=== PATIENT | male | born 1955 | race Caucasian/White ===

== ENCOUNTER 2019-07-28 13:59 | Emergency (ER) | payer BC, SELFPAY ==
[2019-07-28 14:04] VITALS: BP 142/84; PULSE 97; RESP 16; TEMP 36.7; O2SAT 97
--- NOTE | 2019-07-28 14:06 | ED.GENADUL_ITS ---
Discharge Plan Disposition Patient Disposition: HOME Condition: Stable Discharge Details Chief Complaint: Nk/Back Pain Clinical Impression: Sciatica, Groin strain Primary Care Provider: None,None ED Provider: Jes Brambila Home Meds and New Rx's Prescriptions: New methocarbamol 500 mg tablet 500 mg PO Q6H PRN (Reason: muscle spasm) Qty: 14 RF: 0 prednisone 20 mg tablet See Rx Instructions .ROUTE .COMPLEX Qty: 12 RF: 0 Continued meloxicam 15 mg Tablet 15 mg PO PRNRF: 0 Discharge Instructions Instructions: Sciatica (ED) Additional Instructions: Drink plenty of fluids and get plenty of rest. Continue to take meloxicam as needed and directed. Take the muscle relaxer m ethocarbamol as needed and directed for pain. Take the steroids until finished. Follow-up with physical therapy as directed. You will receive a call from care management regarding a follow-up appointment with your primary care doctor. Return to the emergency department if you develop any worsening or new concerning symptoms. Stand Alone Forms: Physical Therapy Referral Discharge Data Discharge Date/Time-TO BE ENTERED AT DEPARTURE: 07/28/19 15:04 Discharge Physician: Jes Brambila Medical Decision Making 64yo M presents with right lower back, buttock and right thigh pain for the past 5 months after a slip without direct injury or fall to the ground. No fever, urinary or cauda equina symptoms. He appears in no acute distress and nontoxic. He has tenderness to palpation right lumbar paraspinal region, right buttock, right lateral hip. No evidence of rash or trauma. Neurovascular intact. No focal deficits. Differential diagnosis includes sciatica, muscle strain, groin strain, tight IT band, disc herniation. Does not appear consistent with cauda equina syndrome. Will give a dose of IM Toradol, p.o. Valium and p.o. prednisone. Do not see indication for imaging as there is no report of recent direct blunt injury. Patient given referral for physical therapy. He is advised on importance of rest, ice, heat, NSAIDs. We will send home with prednisone and methocarbamol. Advised to follow up with the primary care doctor for re-evaluation. He was placed on care management list to arrange for follow-up appointment with a primary care doctor. Usual and customary return precautions given prior to discharge. Medical Records Medical records reviewed: Yes I reviewed the patient's medical records. HPI General Mode of arrival: ambulatory . Date/Time Provider Initiated Documentation: 07/28/19 14:01 . Limitations to Documentation: no limitations . Information obtained by: patient . HPI Narrative: Patient is a 64-year-old male who presents with 5 months of right-sided lower back, buttock and right thigh pain. Patient states he was walking a few months ago when he slipped and his right leg extended outward. Patient states he did not fall directly on his buttock or leg. He states he feels that his right groin becomes painful at times with overuse and when he bends or extends or externally rotates his leg. He denies any fever, abdominal pain, urinary symptoms, bowel or bladder incontinence, leg weakness or numbness, saddle anesthesia. He has been taking meloxicam which he takes for his knee without relief. He states his last dose of meloxicam was 7am this morning. He has not seen his primary care doctor for this. Related Data Home Medications Medication Instructions Recorded Confirmed meloxicam 15 mg PO PRN 07/28/19 methocarbamol 500 mg PO Q6H PRN #14 tab 07/28/19 prednisone See Rx Instructions .ROUTE 07/28/19 .COMPLEX #12 tab Previous Rx's Medication Instructions Recorded methocarbamol 500 mg PO Q6H PRN #14 tab 07/28/19 prednisone See Rx Instructions .ROUTE 07/28/19 .COMPLEX #12 tab Allergies Allergy/AdvReac Type Severity Reaction Status Date / Time No Known Allergies Allergy Unverified 07/28/19 14:09 Review of Systems All systems reviewed & are unremarkable except as noted in HPI and below Constitutional Constitutional: Reports as per HPI, Denies chills and Denies fever(s) Eyes Eyes: Denies blurry vision ENT Ears, Nose, Mouth, and Throat: Denies dizziness, Denies sore throat and Denies throat swelling Cardiovascular Cardiovascular: Denies chest pain and Denies dyspnea Respiratory Respiratory: Denies cough and Denies dyspnea Gastrointestinal Gastrointestinal: Denies abdominal pain, Denies diarrhea and Denies vomiting Genitourinary Genitourinary: Denies hematuria and Denies dysuria Musculoskeletal Musculoskeletal: Reports back pain and Denies numbness Integumentary/Breasts Skin/Breast: Denies lesions and Denies rash Neurologic Neurologic: Denies dizziness, Denies localized weakness and Denies numbness Allergic/Immunologic Allergic/Immunologic: Denies throat swelling [facility] Medical History (Updated 07/28/19 @ 14:45 by Jes Brambila DO) No significant past medical history (Acute) Surgical History (Updated 07/28/19 @ 14:45 by Jes Brambila DO) History of left knee surgery (Acute) Social History (Updated 07/28/19 @ 14:46 by Jes Brambila DO) Smoking/Tobacco Use Status: Current-Occasional Tobacco Type: cigarettes Alcohol Intake: current Alcohol Intake frequency: a few times a week Alcohol type: wine Substance use type: does not use Exam Const General: cooperative, healthy appearing and no acute distress HENMT Head: normal to inspection Face and sinus: normal facial exam Eyes General: appearance normal, both eyes and all related structures EOM: EOM intact bilaterally Neck Neck: normal visual inspection and No submandibular swelling Lymphatic: no lymphadenopathy noted Chest Chest: normal inspection of the chest and no tenderness Resp Effort & Inspection: normal respiratory effort and able to speak in complete sentences Auscultation: clear to auscultation bilaterally Cardio Rate: regular rate Rhythm: regular rhythm GI Inspection: normal to inspection Palpation: soft, not firm, not rigid and nontender Auscultation: normal bowel sounds Male General Exam: Yes normal external exam Penis: normal penis Scrotum: scrotum normal Testes: normal Back/Spine/Pelvis Thoracic/Lumbar Spine: thoracic and lumbar spine normal to inspection and paraspinal tenderness (R lumbar paraspinal ) Pelvis: no pain with anterior-posterior compression, no buttock ecchymosis, buttock tenderness on the right and no buttock swelling Sacrum: no ecchymosis, no erythema, no swelling and no tenderness Skin General skin exam: no rashes or lesions noted Neuro General: patient alert, patient awake and patient oriented x3 Cognition: normal cognition Speech: speech normal Motor: muscle tone normal throughout and strength 5/5 throughout Sensory Exam: no sensory deficits noted DTR's: Rt Patellar: 1+, Lt Patellar: 1+, Rt Ankle: 1+ and Lt Ankle: 1+ Plantar Reflexes: Equivocal: bilateral (negative babinski b/l ) Extrem General: normal to inspection, full ROM, capillary refill normal, no calf tenderness bilaterally and no edema Right lower extremity: foot Details: vascular exam Details: dorsalis pedis pulse present and posterior tibial pulse present Left lower extremity: foot Details: vascular exam Details: dorsalis pedis pulse present and posterior tibial pulse present Psych Appearance: grossly normal Mental Status: mental status grossly normal Speech and Movement: speech and movement normal Affect: normal affect
[2019-07-28] MEDS: predniSONE 20 MG TAB 60 MG PO (14:48)
[2019-07-28] MEDS: diazePAM 5 MG TAB PO (14:48)
[2019-07-28] MEDS: Ketorolac 60 MG/2 ML VIAL IM (14:49)
--- NOTE | 2019-07-30 12:57 | PDOC.ERCMPRO ---
- If Service Date Differs Date of service: 07/30/19 Time of Service: 12:57 Care Management Progress Note At ED provider's request, CM coordinates referral to Roxanne Cerrato MD, of [facility] ([facility]) to assist patient in establishing care with PCP.
== END 2019-07-28 15:04 | disposition home or self-care (01) ==
LOC: ER 15:05
PROVIDERS: Emergency Provider Physician Assistant
DX: M54.41 Lumbago with sciatica, right side (principal); S76.211A Strain of adductor muscle, fascia and tendon of right thigh, initial encounter; W18.49XA Other slipping, tripping and stumbling without falling, initial encounter
CPT/HCPCS: 96372; 99284; J1885; J7512

== ENCOUNTER 2019-08-18 15:46 | Outpatient (CLI) | payer BC, SELFPAY ==
--- NOTE | 2019-08-18 11:00 | DI.RAD_ITS ---
EXAM: XR HIP RT COMPLETE AP PELVIS INDICATION: R hip pain. COMPARISON: No exams were available for comparison TECHNIQUE: 2D digital imaging was performed. FINDINGS: There is mild bilateral hip joint space narrowing. There is moderate bilateral spurring from the ac etabula. There is mild spurring at the margin of the femoral heads. The findings are slightly worse on the right. The SI joints are unremarkable where visualized. IMPRESSION: Ewen-nc-setouczm degenerative changes of both hips, right greater than left. DATA REPOSITORY: RADIATION DOSE DELIVERED:
== END 2019-08-18 16:06 ==
PROVIDERS: Visit Provider Physician Assistant
DX: M25.551 Pain in right hip (principal); M16.0 Bilateral primary osteoarthritis of hip
CPT/HCPCS: 73502

== ENCOUNTER 2019-08-23 08:51 | Day surgery (SDC) | payer BC, SELFPAY ==
[2019-08-23 09:05] VITALS: BP 151/87; PULSE 88; RESP 16; TEMP 36.7; O2SAT 98
[2019-08-23] MEDS: methylPREDNISolone ACETATE 80 MG/ML VIAL (10:57)
--- NOTE | 2019-08-23 10:58 | DI.RAD_ITS ---
EXAM: XR HIP RT IN OR CLINICAL HISTORY: DJD RIGHT HIP TECHNIQUE: 2D and realtime digital imaging was performed. CONTRAST MATERIAL: Refer to procedure report. COMPARISON: No exams were available for comparison FINDINGS: Fluoroscopy was provided for Dr. Gamez during the performance of a right hip joint injection. Kirstin herrera refer to the procedure report for complete details. Fluoro time: 2.2 seconds IMPRESSION: RADIATION DOSE DELIVERED:
--- NOTE | 2019-08-23 11:02 | PDOC.DSDIS_ITS ---
Discharge Plan Disposition Patient Disposition: HOME Condition: Good Discharge Details Reason For Visit: C ARM GUIDED INJECTION R HIP Attending Provider: Junior Gamez Primary Care Provider: None,None Home Meds and New Rx's Prescriptions: New naproxen 500 mg tablet 500 mg PO BID Qty: 60 RF: 3 Continued ibuprofen 200 mg Tablet 400 mg PO Q6H PRNRF: 0 Discontinued meloxicam 15 mg Tablet 15 mg PO PRNRF: 0 Discharge Instructions Additional Instructions: Limit walking for next 2 days. On Fri, increase activities as tolerated. Stop meloxicam. Take naproxen instead at breakfast and supper. Follow up with in one month. Referrals: Junior Gamez MD [ [facility] STAFF PHYSICIAN] - (f/u in one month) Activity:: Activity as Tolerated Diet:: As Tolerated Discharge Orders Discharge Orders: Discharge Order (Routine); Ordered 08/23/19 Ordered By: Junior Gamez
--- NOTE | 2019-08-23 15:25 | ROE_ITS ---
Date of service: 08/23/19 Time of Service: 10:25 Operative Note Operative Note DATE OF PROCEDURE: 08/23/19 PRE-OP DIAGNOSIS: Osteoarthritis right hip POST-OP DIAGNOSIS: same PROCEDURE: C arm guided steroid injection of the right hip joint. SURGEON: Junior Gamez ANESTHESIA: none COMPLICATIONS: None Patient was transported to: same day Patient's condition: stable Indications: This 64-year-old white male with recently diagnosed osteoarthritis of his right hip. Prior to this diagnosis he was thought to have sciatica. His symptoms had only been present for a couple of months. Because of fairly recent onset set of symptoms, and because he has had no other treatment other than anti-inflammatory medications, I thought he would benefit from an intra- articular steroid injection. I felt this may buy him time until he needs a hip replacement. He was in agreement my recommendations. He preferred to put off hip replacement as long as he could. Risk complications of procedure been explained patient detail preop. Procedure Description: Patient taken to the operating room on 08/23/2019. He is placed supine on a radiolucent operating table. Ring forceps and the C-arm was used to identify the hip joint. I then rach a chickaloon my pen around the edges of the ring forceps. The skin was prepped with alcohol and an 18-gauge spinal needle was then placed through the drawn surgical until it contacted the femoral head. C arm was then used to confirm that the spinal needle was in fact of the femoral head and the hip joint. I then injected to the spinal needle 15 cc of 0.5 some Marcaine with epinephrine solution along with 80 mg Depo-Medrol. Needle was removed and direct pressure with a gauze was applied to control any oozing of blood. I then passively manipulated his hip to distribute the medication. He had excellent relief of pain from the injection. He was discharged to day surgery in good condition. Patient was given instructions to limit walking for next 48 hours postinjection. After 48 hours he may resume activities as tolerated. He is given a prescription of Naprosyn 500 mg p.o. twice daily as anti-inflammatory medication. This is to substitute for meloxicam which has helped but is given him diarrhea. He will follow-up with Dr. Gamez in 1 month
== END 2019-08-23 11:30 | disposition home or self-care (01) ==
PROVIDERS: Visit Provider Orthopaedic Surgery
PROC: (CPT 20610; principal; 2019-08-23 11:30)
DX: M16.11 Unilateral primary osteoarthritis, right hip (principal); M25.551 Pain in right hip
CPT/HCPCS: 20610; 77002; 73501; J1040

== ENCOUNTER 2020-03-01 02:06 | Outpatient (CLI) | payer BC, SELFPAY ==
--- NOTE | 2020-03-01 | DI.RAD_ITS ---
EXAM: XR CERVICAL SPINE COMP 4-5V CLINICAL HISTORY: ARTHRALGIA,M25.50,PARESTHESIA,R20.2. TECHNIQUE: 2D digital imaging was performed. COMPARISON: No exams were available for comparison FINDINGS: The odontoid is intact. The lateral masses are well aligned. There is normal alignment of the cervi charline spine. Endplate osteophytes are seen at C5-6 and C6-C7. There is moderate bilateral neural fora quin stenosis at C5-C6. There is moderately severe neural foraminal stenosis bilaterally at C6-C7. No acute fracture or subluxation is seen. The bones are normally mineralized. The prevertebral sof t tissues are unremarkable. IMPRESSION: Moderate degenerative changes throughout the cervical spine particularly at C5-6 and C6-C7. DATA REPOSITORY: RADIATION DOSE DELIVERED:
== END 2020-03-01 02:26 ==
PROVIDERS: Visit Provider Family Medicine
DX: M47.812 Spondylosis without myelopathy or radiculopathy, cervical region (principal); R20.2 Paresthesia of skin; M48.02 Spinal stenosis, cervical region
CPT/HCPCS: 72050

== ENCOUNTER 2020-03-07 14:13 | Outpatient (REF) | payer BC, SELFPAY ==
[2020-03-07 22:35] LABS: Anion Gap 1.1 mmol/L (3-11); BUN 25 mg/dL (7-18); CO2 28.9 mmol/L (21.0-32.0); CREATININE 1.03 mg/dL (0.70-1.30); Calcium 8.9 mg/dL (8.5-10.1); Calculated LDL 169 mg/dL (<100); Chloride 105 mmol/L (98-107); Cholesterol 230 mg/dL (<200); Glucose 107 mg/dL (74-106); HDL Cholesterol 40 mg/dL (40-60); Potassium 5.1 mmol/L (3.5-5.1); Sodium 135 mmol/L (136-145); Triglyceride 109 mg/dL (<150)
[2020-03-08 16:25] LABS: Rheumatoid Factor <8.6 IU/mL (<12.0)
[2020-03-09 21:34] LABS: ALT 27 U/L (16-63); AST 16 U/L (15-37); Albumin 3.8 g/dL (3.4-5.0); Alkaline Phosphatase 111 U/L (46-116); Anion Gap 7.8 mmol/L (3-11); BUN 24 mg/dL (7-18); Bilirubin, Total 0.4 mg/dL (0.2-1.0); CO2 26.2 mmol/L (21.0-32.0); CREATININE 1.1 mg/dL (0.70-1.30); Calcium 8.9 mg/dL (8.5-10.1); Chloride 105 mmol/L (98-107); Glucose 104 mg/dL (74-106); Potassium 5.2 mmol/L (3.5-5.1); Sodium 139 mmol/L (136-145); TSH (W/Ref FT4) 1.67 uIU/mL (0.36-3.74); Total Protein 6.7 g/dL (6.4-8.2); Vitamin B12 437 pg/mL (193-986)
[2020-03-13 15:18] LABS: ANA Interpretation Negative (Negative)
== END 2020-03-07 14:33 ==
LOC: NCHCN 14:13
PROVIDERS: PCP Family Medicine; Visit Provider Family Medicine
DX: R20.2 Paresthesia of skin (principal); I10 Essential (primary) hypertension; M25.59 Pain in other specified joint; E66.3 Overweight
CPT/HCPCS: 80048; 80053; 80061; 82607; 84443; 86038; 86431

== ENCOUNTER 2020-03-13 15:55 | Outpatient (REF) | payer BC, SELFPAY ==
[2020-03-13 13:43] LABS: Abs Immature Grans 0.02 10^3/uL (0.0-0.06); Absolute Basophil Count 0.06 10^3/uL (0.0-0.2); Absolute Eosinophil Count 0.17 10^3/uL (0.0-0.7); Absolute Lymphocyte Count 2.23 10^3/uL (1.2-3.4); Absolute Monocyte Count 0.57 10^3/uL (0.1-0.8); Absolute Neutrophil Count 4.06 10^3/uL (1.2-6.7); Basophils % 0.8; Eosinophils % 2.4; HCT 47.6 % (40.0-50.0); HGB 15.7 g/dL (13.5-17.5); Immature Grans % 0.3; Lymphocytes % 31.4; MCH 29.6 pg (27.0-33.0); MCV 89.8 fL (80-95); MPV 10.4 fL (8.0-11.0); Neutrophils % 57.1; Nucleated RBC 0 %; Platelet Count 326 10^3/uL (130-400); RDW 13.7 % (11.8-14.1); RDW-SD 44.9 fL; WBC 7.11 10^3/uL (4.4-10.8)
[2020-03-13 14:54] LABS: ESR 9 mm/hr (1-20)
[2020-03-14 10:12] LABS: Lyme Ab w Rflx to Lyme Confirm Negative (Negative)
[2020-03-16 00:51] LABS: Anaplasma phagocytophilum Negative (Negative); B. miyamotoi PCR Negative (Negative); Babesia divergens/MO-1 Negative (Negative); Babesia duncani Negative (Negative); Babesia microti Negative (Negative); Ehrlichia chaffeensis Negative (Negative); Ehrlichia ewingii/canis Negative (Negative); Ehrlichia muris eauclairensis Negative (Negative)
== END 2020-03-13 16:15 ==
LOC: NCHCN 15:55
PROVIDERS: PCP Family Medicine; Visit Provider Family Medicine
DX: R20.2 Paresthesia of skin (principal); I10 Essential (primary) hypertension; M25.59 Pain in other specified joint
CPT/HCPCS: 85652; 87798; 85025; 86618

== ENCOUNTER 2020-04-18 01:42 | Outpatient (CLI) | payer BC, SELFPAY ==
--- NOTE | 2020-04-18 14:25 | DI.MRI_ITS ---
EXAM: MR CERVICAL SPINE WO CLINICAL HISTORY: CERVICAL HERNIATED DISC,M50.20,H/O FALL,NUMBNESS,TINGLING,RT WORSE THAN LT TECHNIQUE: Multiplanar multisequence MRI of the cervical spine was performed without intravenous con trast. COMPARISON: CR XR CERVICAL SPINE COMP 4-5V from 03/01/2020 FINDINGS: BONES: Vertebral body heights are maintained. Intervertebral disc spaces are normal. Alignment is nor mal. Degenerative endplate signal changes are seen at C6 and C7. CERVICAL CORD: Craniovertebral junction is unremarkable. The cervical cord is normal size and signal intensity. SOFT TISSUES: Unremarkable. C2-3: No disc herniation or bulge is identified. No significant central spinal canal or neural forami nal stenosis. C3-4: No disc herniation or bulge is identified. No significant central spinal canal or neural forami nal stenosis C4-5: No disc herniation or bulge is identified. No significant central spinal canal or neural forami nal stenosis C5-6: There is mild prominence of the disc at this level. Degenerative changes of the uncovertebral joints are present particularly on the left. Mild narrowing of the central spinal canal is noted. T here is mild right and [id number]-yq-[id number] left neural foraminal stenosis. C6-7: There is a diffuse disc bulge. Degenerative changes of the uncovertebral joints are present. The findings cause mild narrowing of the central spinal canal and moderate bilateral neural foraminal stenosis. C7-T1: No disc herniation or bulge is identified. No significant central spinal canal or neural mine inal stenosis IMPRESSION: 1. Degenerative changes at C5-6 resulting in mild narrowing of the central spinal canal and bilateral neural foraminal stenosis. 2. Degenerative changes and a diffuse disc bulge at C6-C7 causing mild central spinal canal stenosis and moderate bilateral neural foraminal stenosis. DATA REPOSITORY:
== END 2020-04-18 02:02 ==
PROVIDERS: PCP Family Medicine; Visit Provider Specialist
DX: M47.812 Spondylosis without myelopathy or radiculopathy, cervical region (principal); M48.02 Spinal stenosis, cervical region; M50.222 Other cervical disc displacement at C5-C6 level
CPT/HCPCS: 72141

== ENCOUNTER 2020-07-26 16:59 | Outpatient (REF) | payer BC, SELFPAY ==
[2020-07-26 13:56] LABS: ESR 16 mm/hr (0-20)
[2020-07-26 14:12] LABS: Hemoglobin A1C 5.8 % (<5.7)
[2020-07-26 14:13] LABS: Anion Gap 8.8 mmol/L (3-11); BUN 24 mg/dL (7-18); CO2 28.2 mmol/L (21.0-32.0); Calcium 9.1 mg/dL (8.5-10.1); Chloride 107 mmol/L (98-107); Creatine Kinase 141 U/L (39-308); Glucose 105 mg/dL (74-106); Potassium 4.5 mmol/L (3.5-5.1); Sodium 144 mmol/L (136-145)
[2020-07-27 11:08] LABS: Cyclic Citrullinated Peptide <2.5 U/mL (<5.0)
[2020-07-27 14:01] LABS: ANA Interpretation Positive (Negative); ANA Titer Pattern 1:80 Speckled
== END 2020-07-26 17:00 | disposition home or self-care (01) ==
LOC: NCHCN 16:59
PROVIDERS: PCP Family Medicine; Visit Provider Nurse Practitioner Family
DX: I10 Essential (primary) hypertension (principal); M79.18 Myalgia, other site; M25.59 Pain in other specified joint; R73.01 Impaired fasting glucose
CPT/HCPCS: 80048; 82550; 85652; 86200; 83036; 86038; 86140

== ENCOUNTER 2020-11-16 18:24 | Emergency (ER) | payer BC, SELFPAY ==
[2020-11-16] VITALS (33 sets, daily range): BP systolic 110–188; BP diastolic 63–87; PULSE 87–130; RESP 12–39; TEMP 36.4; O2SAT 93–98
--- NOTE | 2020-11-16 18:15 | RT.EKG_ITS ---
APPROVED REPORT Exam: Resting ECG Reason for Exam: sob Patient Location: E HR:103 bpm ECG Measurements Heart Rate 103 AXIS SD 165 P 92 QRSd 88 QRS 53 QT 297 T 48 QTc 390 Conclusion Sinus tachycardia...rate> 99 Probable left atrial enlargement...P >50mS, <-0.10mV V1
[2020-11-16 18:58] LABS: Source Nasal/Nares
--- NOTE | 2020-11-16 19:00 | DI.RAD_ITS ---
Exam(s) XR PORTABLE CHEST AP EXAM: XR PORTABLE CHEST AP CLINICAL HISTORY: dry cough, fever. TECHNIQUE: 2D digital imaging was performed. COMPARISON: CT CT CHEST PE CTA from 11/16/2020 FINDINGS: LUNGS: Clear. No pleural abnormality seen. HEART: Normal. MEDIASTINUM: Normal. OTHER FINDINGS: None. IMPRESSION: No acute pulmonary findings. DATA REPOSITORY: RADIATION DOSE DELIVERED: Total DLP
--- NOTE | 2020-11-16 19:01 | ED.GENADUL_ITS ---
Discharge Plan Disposition Patient Disposition: HOME Condition: Stable Discharge Details Clinical Impression: Viral syndrome Primary Care Provider: Matthew Medina ED Provider: Nabor Ramon Meds and New Rx's Prescriptions: Continued ibuprofen 200 mg Tablet 400 mg PO Q6H PRNRF: 0 naproxen 500 mg tablet 500 mg PO BID Qty: 60 RF: 3 multivitamin Tablet 1 tab PO DAILY RF: 0 sulfasalazine 500 mg tablet 500 mg PO DAILY RF: 0 cyanocobalamin (vitamin B-12) [Vitamin B-12] 1,000 mcg Tablet 1,000 mcg PO DAILY RF: 0 Discharge Instructions Additional Instructions: Despite a negative COVID here tonight, symptoms and CT findings consistent with viral illness and possibly COVID. Recommend quarantine at home and retest for COVID on Friday. Testing done 8am to noon Friday morning without need for order/schedule. Rest, fluids, acetaminophen or ibuprofen for fever/aches. Return to ED for mental status changes, chest pain, trouble breathing, persistent vomiting, other concerns. Hold off taking the new medicine until symptoms resolve and you have discussed with the prescribing provider. Referrals: Matthew Medina MD [Primary Care Provider] - Discharge Data Discharge Date/Time-TO BE ENTERED AT DEPARTURE: 11/16/20 22:56 Medical Decision Making <Junior Salgado MD - Last Filed: 11/16/20 20:07> 65-year-old male with a history of psoriatic arthritis. He presents today for the fairly abrupt onset this afternoon of general malaise, fever of 101, chills, body ache, joint ache, pounding in his ears. He states that he did start sulfasalazine per his plant etiologist this past Friday and today was his third dose. He has not had a rash, tightness of the throat. He presents to the ED afebrile with a pulse of 103, oxygenating 96% on room air. Exam is essentially reassuring but would note the resting tachycardia and dry mucous membranes. Considerations in the differential diagnosis include viral syndrome, pneumonitis, dehydration, electrolyte abnormality, or side effect of new medication. Patient IV access established, screening laboratories, EKG and COVID-19 test obtained. Referred for EKG and chest x-ray. Patient presented prior to change of shift, will be signed out to Dr. Ramon pending review of diagnostic studies. See his note regarding details of final impression and disposition. <Nabor Ramon MD - Last Filed: 11/17/20 04:19> Patient signed out to me pending laboratory studies. He had presented with fever and viral-like symptoms but has also been started on sulfasalazine recently. Please see Dr. Salgado's note for initial presentation and evaluation. Laboratory studies significant for elevated white count 16.3. Lactic acid normal. Procalcitonin normal. Urine negative. LFTs and chemistries fine. D- dimer elevated to 967. Chest x-ray per radiology preliminary read normal. Rapid Covid PCR negative. Due to elevated D-dimer CTA ordered. CTA negative for PE. Right upper lobe nonspecific groundglass opacities noted. Patient symptomatology just started today. Possible that negative Covid PCR due to early symptoms. Patient otherwise looks well and is safe for discharge. Recommend quarantine and repeat Covid testing Friday morning. 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 Patient to return if any mental status change, chest pain, increasing shortness of breath, vomiting or other concerns. Hold sulfasalazine for now until symptoms have resolved and patient able to speak to prescribing provider. Lab Data Lab results reviewed: Yes I reviewed the patient's lab results. HPI <Junior Salgado MD - Last Filed: 11/16/20 20:07> General Mode of arrival: wheelchair . Date/Time Provider Initiated Documentation: 11/16/20 18:25 . Limitations to Documentation: no limitations . Information obtained by: patient . History of Present Illness 65 year old M presents to the emergency department with the chief complaint of Fever and body ache, described as moderate, Quality is described as dull and constant, Patient reports no radiation. Patient started experiencing this hour(s) and it has been constant. No relieving factors improve symptom(s), No exacerbating factors reported . Patient notes cough, fever/chills, headaches and malaise; denies chest pain and syncope. Patient did receive the following treatments prior to arrival, none and other (Started sulfasalazine on Friday) Related Data Home Medications Medication Instructions Recorded Confirmed ibuprofen 400 mg PO Q6H PRN 08/23/19 11/16/20 naproxen 500 mg PO BID #60 tab 08/23/19 11/16/20 cyanocobalamin (vitamin B-12) 1,000 mcg PO DAILY 11/16/20 11/16/20 [Vitamin B-12] multivitamin 1 tab PO DAILY 11/16/20 11/16/20 sulfasalazine 500 mg PO DAILY 11/16/20 11/16/20 Previous Rx's Medication Instructions Recorded naproxen 500 mg PO BID #60 tab 08/23/19 Allergies Allergy/AdvReac Type Severity Reaction Status Date / Time meloxicam AdvReac Intermediate Verified 11/16/20 18:40 General Stated Complaint: Fever DINORA: 2 Review of Systems <Junior Salgado MD - Last Filed: 11/16/20 20:07> Narrative: Fever, body and joint ache, malaise, pounding in his ears, dry cough. Fully immunized against COVID-19. Started sulfasalazine on Friday per plant etiologist for psoriatic arthritis. 8 systems reviewed and otherwise negative PFSH <Junior Salgado MD - Last Filed: 11/16/20 20:07> Medical History No significant past medical history Surgical History History of left knee surgery Social History Smoking/Tobacco Use Status: Current-Occasional Tobacco Type: cigarettes Smoking risk assessment performed?: Yes Alcohol Intake: current Alcohol Intake frequency: a few times a month Alcohol t ype: wine Substance use type: does not use Details: 3-5 cigarettes per week Current gender identity: male Do you feel safe at home: Yes Exam <Junior Salgado MD - Last Filed: 11/16/20 20:07> Narrative Exam Narrative: GEN: awake, alert, oriented 3. Pleasant, well groomed, interactive. HEAD: Normocephalic, atraumatic ENT: Mucous membranes dry, oropharynx unremarkable, External ear exam unremarkable EYES: PERRL, EOMI NECK: Full ROM, no ELIZABETH, no menigismus CHEST/RESP: Nontender, clear to auscultation bilateral, no wheeze/rhonchi/rales CARDIOVASCULAR: Regular and tachycardic, no murmur, rub joanie. 2+ Rad pulse bilateral ABDOMEN: Soft, nontender, no mass. +Bowel sounds EXT: Full ROM, no edema, no rash Neuro: Grossly normal neurologic exam, conversant, interactive. Psych: Speech fluent, thoughts congruent, affect normal Course <Junior Salgado MD - Last Filed: 11/16/20 20:07> Vital Signs Vital signs: Vital Signs Temperature 36.4 C 11/16/20 18:33 Pulse 103 H 11/16/20 18:33 Respiratory Rate 21 11/16/20 18:33 Blood Pressure 144/76 H 11/16/20 18:33 Pulse Oximetry 96 11/16/20 18:33 Temperature 36.4 C 11/16/20 18:33 Temperature Source Oral 11/16/20 18:33 Pulse 103 H 11/16/20 18:33 Respiratory Rate 21 11/16/20 18:33 Respiratory Effort Non-Labored 11/16/20 18:33 Blood Pressure 144/76 H 11/16/20 18:33 Blood Pressure Position Supine 11/16/20 18:33 Pulse Oximetry 96 11/16/20 18:33 Oxygen Delivery Method Room Air 11/16/20 18:33 Oxygen Flow Rate 0 11/16/20 18:33 Pain Level 8 11/16/20 18:33 Lab/Test Results Lab/Test Results: Laboratory Tests Range/Units 11/16/20 18:40 COVID-19 Source Nasal/Nares Sign Out <Junior Salgado MD - Last Filed: 11/16/20 20:07> Sign Out Data: Sign Out Comment: Followup labs/XR, re-eval Last updated by Junior Salgado MD at 11/16/20 19:45
[2020-11-16 19:39] LABS: Bilirubin Negative (Negative); Blood Small (Negative); Clarity Clear (Clear); Glucose Negative (Negative); Ketones Negative (Negative); Leukocyte Esterase Negative (Negative); Nitrite Negative (Negative); Urobilinogen 0.2 EU/dL (Up TO 0.2)
[2020-11-16 19:42] LABS: Bacteria Negative HPF (Negative); C & S Indicated? No; Casts Negative LPF (Negative); Crystals Negative HPF (Negative); Epithelial Cells Negative HPF (Negative); Mucus Negative (Negative); Other Cells Negative (Negative); RBC 0-2 HPF (0-2); WBC Negative HPF (0-5)
[2020-11-16 19:44] LABS: Lactate 0.9 mmol/L (0.6-1.4)
[2020-11-16 19:47] LABS: Abs Immature Grans 0.05 10^3/uL (0.0-0.06); Absolute Basophil Count 0.05 10^3/uL (0.0-0.2); Absolute Eosinophil Count 0.05 10^3/uL (0.0-0.7); Absolute Monocyte Count 1.42 10^3/uL (0.1-0.8); Absolute Neutrophil Count 12.54 10^3/uL (1.2-6.7); Basophils % 0.3; Eosinophils % 0.3; HCT 48.2 % (40.0-50.0); Immature Grans % 0.3; Lymphocytes % 13.5; MCH 29.6 pg (27.0-33.0); MCHC 33.2 % (32.0-36.0); MCV 89.3 fL (80-95); MPV 9.7 fL (8.0-11.0); Monocytes % 8.7; Neutrophils % 76.9; Nucleated RBC 0 %; Platelet Count 245 10^3/uL (130-400); RDW 13.9 % (11.8-14.1); RDW-SD 45.4 fL; WBC 16.31 10^3/uL (4.4-10.8)
[2020-11-16 19:53] LABS: COVID-19 PCR Negative (Negative)
[2020-11-16 20:03] LABS: ALT 19 U/L (16-63); AST 12 U/L (15-37); Albumin 3.5 g/dL (3.4-5.0); Alkaline Phosphatase 108 U/L (46-116); Anion Gap 3.3 mmol/L (3-11); BUN 14 mg/dL (7-18); Bilirubin, Total 0.7 mg/dL (0.2-1.0); C-Reactive Protein 2.24 mg/dL (0.0-0.3); CO2 29.7 mmol/L (21.0-32.0); Calcium 8.6 mg/dL (8.5-10.1); Chloride 103 mmol/L (98-107); Glucose 105 mg/dL (74-106); Potassium 3.9 mmol/L (3.5-5.1); Sodium 136 mmol/L (136-145); Total Protein 6.7 g/dL (6.4-8.2)
[2020-11-16] MEDS: ACETAMINOPHEN 1,000 MG/100 ML BTL 400 MG IVPB (20:08)
[2020-11-16 20:21] LABS: D-Dimer 967 ng/mlFEU (<500)
[2020-11-16 20:22] LABS: Procalcitonin < 0.1 ng/mL
[2020-11-16] MEDS: Lactated Ringers 1,000 ML 1000 ML IV (20:31)
--- NOTE | 2020-11-16 20:40 | DI.VRAD_ITS ---
PROCEDURE INFORMATION: Exam: XR Chest Exam date and time: 11/16/2020 7:01 PM Age: 65 years old Clinical indication: Other: Dry cough, fever TECHNIQUE: Imaging protocol: XR of the chest. Views: 1 view. COMPARISON: MR CERVICAL SPINE WO 04/18/2020 9:13 AM FINDINGS: Lungs: Unremarkable. No consolidation. Pleural spaces: Unremarkable. No pleural effusion. No pneumothorax. Heart/Mediastinum: Unremarkable. No cardiomegaly. Bones/joints: Unremarkable. IMPRESSION: No acute findings. Dictated and Authenticated by: Dane Jones MD. Ordering:LASHANDA Pacheco MD
--- NOTE | 2020-11-16 21:00 | DI.CT_ITS ---
Exam(s) CT CHEST PE CTA EXAM: CT CHEST PE CTA CLINICAL HISTORY: SOB d-dimer pos. TECHNIQUE: Imaging Protocol: Axial CT angiography was performed with multi-slice acquisition and mu lti-planar and/or 3D reconstructions. CONTRAST MATERIAL: Intravenous: Omnipaque 350 Contrast volume:structured data in ml COMPARISON: No exams were available for comparison FINDINGS: CT angiography of the chest was performed with intravenous infusion of 100 cc of Omnipaque 350. The lungs are predominantly clear, except for some peripheral patchy reticulo nodular and ground-glas s opacities of the right upper lobe, please correlate regarding the possibility of acute infectious p rocess.. No pleural effusion. Tracheobronchial tree appears intact. No evidence of pulmonary embolic disease. Thoracic aorta is of normal diameter, no thoracic aortic an eurysm or dissection, major branch vessels appear intact. No mediastinal or hilar adenopathy. Images obtained through the upper abdomen show unremarkable appearance of the visualized portions of the liver, spleen, pancreas, adrenals, and kidneys. IMPRESSION: Nonspecific right upper lobe peripheral patchy radiodensities, pneumonitis not excluded, no evidence of pulmonary embolic disease. RADIATION DOSE DELIVERED: 522.68mGy.cm Total DLP 522.68mGy.cm Total DLP CTDIvol DATA REPOSITORY: All CT scans at this facility are submitted to the National Radiology Data Registry (NRDR) Dose Index Registry (DIR) with the [employer] ([employer]). RADIATION OPTIMIZATION: All CT scans at this facility use at least one of these dose optimization te chniques: automated exposure control; mA and/or kV adjustment per patient size (includes targeted exa ms where dose is matched to clinical indication); or iterative reconstruction.
[2020-11-16] MEDS: Normal Saline - Diluent 50 ML VIAL IV (21:58)
[2020-11-16] MEDS: Omnipaque 350 MG/ML 100 ML BTL IJ (21:59)
[2020-11-16] MEDS: Normal Saline Flush 10 ML SYR IVP (21:59)
--- NOTE | 2020-11-16 22:29 | DI.VRAD_ITS ---
PROCEDURE INFORMATION: Exam: CTA Chest With Contrast Exam date and time: 11/16/2020 9:07 PM Age: 65 years old Clinical indication: Shortness of breath and other: D-dimer pos TECHNIQUE: Imaging protocol: Computed tomographic angiography of the chest with contrast. 3D rendering (Not supervised by radiologist): MIP and/or 3D reconstructed images were created by the technologist. COMPARISON: CR XR PORTABLE CHEST AP 11/16/2020 7:46 PM FINDINGS: Pulmonary arteries: Normal. No pulmonary emboli. Aorta: Unremarkable. No aortic aneurysm. No aortic dissection. Lungs: Nonspecific subpleural small patchy areas of ground-glass opacification within the right upper lobe. Pleural spaces: Unremarkable. No pneumothorax. No pleural effusion. Heart: Unremarkable. No cardiomegaly. No pericardial effusion. Lymph nodes: Unremarkable. No enlarged lymph nodes. Kidneys and ureters: Partially visualized 1.5 cm cortical renal cyst within the midpole of the left kidney. Bones/joints: Unremarkable. No acute fracture. Soft tissues: Unremarkable. IMPRESSION: 1. No evidence of pulmonary embolism. 2. Nonspecific subpleural small patchy areas of ground-glass opacification within the right upper lobe. Dictated and Authenticated by: Dane Jones MD. Ordering:ED Tomlin MD
== END 2020-11-16 22:56 | disposition home or self-care (01) ==
PROVIDERS: Emergency Medicine; Emergency Provider Emergency Medicine; PCP Family Medicine
DX: B34.9 Viral infection, unspecified (principal); R50.9 Fever, unspecified; R53.81 Other malaise; R06.02 Shortness of breath; R79.1 Abnormal coagulation profile; R05.1 Acute cough
CPT/HCPCS: 36415; 71275; 80053; 84145; 87635; 93005; 96361; 96365; 99285; 71045; 81003; 81015; 83605; 85025; 85379; 86140; 93010; 99284; J0131; J3490

== ENCOUNTER 2021-03-09 12:42 | Outpatient (REF) | payer BC, SELFPAY ==
[2021-03-09 14:52] LABS: Abs Immature Grans 0.02 10^3/uL (0.0-0.06); Absolute Basophil Count 0.04 10^3/uL (0.0-0.2); Absolute Eosinophil Count 0.17 10^3/uL (0.0-0.7); Absolute Monocyte Count 0.54 10^3/uL (0.1-0.8); Absolute Neutrophil Count 4.48 10^3/uL (1.2-6.7); Basophils % 0.5; Eosinophils % 2.2; HCT 48.1 % (40.0-50.0); HGB 15.9 g/dL (13.5-17.5); Immature Grans % 0.3; Lymphocytes % 31.4; MCH 29.9 pg (27.0-33.0); MCHC 33.1 % (32.0-36.0); MCV 90.4 fL (80-95); Monocytes % 7.1; Neutrophils % 58.5; Nucleated RBC 0 %; Platelet Count 312 10^3/uL (130-400); RBC 5.32 10^6/uL (4.36-5.78); RDW 14.6 % (11.8-14.1); RDW-SD 48.9 fL; WBC 7.65 10^3/uL (4.4-10.8)
[2021-03-09 15:52] LABS: ALT 23 U/L (16-63); AST 14 U/L (15-37); Albumin 3.6 g/dL (3.4-5.0); Alkaline Phosphatase 110 U/L (46-116); Anion Gap 6.2 mmol/L (3-11); BUN 14 mg/dL (7-18); Bilirubin, Total 0.7 mg/dL (0.2-1.0); CO2 29.8 mmol/L (21.0-32.0); CREATININE 0.9 mg/dL (0.70-1.30); Calcium 8.6 mg/dL (8.5-10.1); Chloride 104 mmol/L (98-107); Glucose 100 mg/dL (74-106); Potassium 4.4 mmol/L (3.5-5.1); Sodium 140 mmol/L (136-145); Total Protein 6.5 g/dL (6.4-8.2)
== END 2021-03-09 12:43 | disposition home or self-care (01) ==
LOC: NCHCN 12:42
PROVIDERS: PCP Family Medicine; Visit Provider Family Medicine
DX: L40.50 Arthropathic psoriasis, unspecified (principal); M25.59 Pain in other specified joint; M79.18 Myalgia, other site
CPT/HCPCS: 80053; 85025

== ENCOUNTER 2021-03-22 02:45 | Outpatient (CLI) | payer BC, SELFPAY ==
[2021-03-26 15:10] LABS: TB Interpretation Negative (Negative); TB2 Ag minus Nil 0.01 IU/mL
== END 2021-03-22 02:46 | disposition home or self-care (01) ==
LOC: LBO 02:45
PROVIDERS: PCP Family Medicine; Visit Provider Internal Medicine
DX: Z11.1 Encounter for screening for respiratory tuberculosis (principal)
CPT/HCPCS: 36415; 86480

== ENCOUNTER 2021-07-12 08:53 | Emergency (ER) | payer BC, SELFPAY ==
[2021-07-12 08:58] VITALS: BP 165/91; PULSE 83; RESP 16; TEMP 36.8; O2SAT 97
--- NOTE | 2021-07-12 09:00 | DI.RAD_ITS ---
Exam(s) XR KNEE RT 3V AP,LAT,ANY EXAM: XR KNEE RT 3V AP,LAT,ANY CLINICAL HISTORY: Pain and swelling. TECHNIQUE: 2D digital imaging was performed. COMPARISON: No exams were available for comparison FINDINGS: No evidence of fracture. Small joint effusion. Advanced degenerative changes noted in the medial co mpartment. Moderate degenerative changes in the lateral compartment. Moderate-advanced degenerative changes in the patellofemoral compartment. There appears to be some swelling and indistinctness of the patellar ligament, possibly significant. IMPRESSION: Significant osteoarthritic degenerative changes. Small joint effusion. There appears to be abnormal thickening and indistinctness of the patellar ligament. Correlation wit h clinical findings recommended. DATA REPOSITORY: RADIATION DOSE DELIVERED:
--- NOTE | 2021-07-12 09:06 | ED.GENADUL_ITS ---
Discharge Plan Disposition Patient Disposition: HOME Condition: Stable Discharge Details Clinical Impression: Degenerative arthritis of right knee Primary Care Provider: Matthew Medina ED Provider: Sue Perez Home Meds and New Rx's Prescriptions: Continued folic acid 1 mg tablet 1 mg PO DAILY methotrexate sodium 2.5 mg tablet 5 mg PO QWEEK ibuprofen 200 mg Tablet 400 mg PO Q6H PRN multivitamin Tablet 1 tab PO DAILY cyanocobalamin (vitamin B-12) [Vitamin B-12] 1,000 mcg Tablet 1,000 mcg PO DAILY No Action gabapentin 300 mg capsule 300 mg PO TID Humira 40 mg/0.8 mL syringe kit See Rx Instructions subcut .COMPLEX Rx Instructions: inject one - 40 mg/0.8 mL syringe every 2 weeks subcut Discharge Instructions Instructions: Arthritis (ED) Additional Instructions: At this time there is no clear evidence for any infected fluid within your joint. Since the erythema or redness gets worse please follow-up sooner. Please keep your scheduled orthopedic appointment. The lab work and inflammatory markers are all within normal limits. Rest ice compression elevation. Please wear the Micky wrap as needed for comfort. You may try reub-enr-czovxgn Voltaren or diclofenac cream, continue taking the medications you have previously prescribed. Follow up with primary care provider in 3-5 days. Return to ED sooner if any worsening or concerns. Increase oral fluids. Referrals: Matthew Medina MD [Primary Care Provider] - 5 days lBue Bolivar MD [ [facility] STAFF PHYSICIAN] - 1 week Discharge Data Discharge Date/Time-TO BE ENTERED AT DEPARTURE: 07/12/21 10:56 Medical Decision Making X-ray ordered, CBC, CMP, CT RP, ESR ordered uric acid ordered. Differential diagnosis includes but not limited to osteoarthritis, septic arthritis, gout, underlying occult fracture, patellar bursitis Imaging shows significant osteoarthritic degenerative changes small joint effusion and appears to abnormal thickening and indistinctness of the patellar ligament. Will consider consultation with orthopedics, will consider arthrocentesis 1022: CRP, ESR, CBC CMP all within normal limit. Discussed case with orthopedic surgeon on-call Dr. Larkin regarding patient case and details. He recommends follow-up with orthopedic which patient already has an upcoming appointment. He also recommends consideration for MRI if needed. At this time there is no clear evidence for septic arthritis this is an ongoing for approximately 2 to 3 weeks. Patient has no systemic symptoms. I will discussed RICE procedures with patient and will place an Micky wrap. This text was generated using [employer] system, please disregard any oddities of phrase or misspellings. Imaging Data Radiologic Study: Imaging: X-Ray Radiologist's impression: EXAM:? XR KNEE RT 3V AP,LAT,ANY CLINICAL HISTORY: ? Pain and swelling. ? FINDINGS: No evidence of fracture.? Small joint effusion.? Advanced degenerative changes noted in the medial compartment.? Moderate degenerative changes in the lateral compartment.? Moderate-advanced degenerative changes in the patellofemoral compartment. There appears to be some swelling and indistinctness of the patellar ligament, possibly significant. IMPRESSION: Significant osteoarthritic degenerative changes.? Small joint effusion. There appears to be abnormal thickening and indistinctness of the patellar ligament.? Correlation with clinical findings recommended. HPI General Mode of arrival: ambulatory . Date/Time Provider Initiated Documentation: 07/12/21 08:55 . Limitations to Documentation: no limitations . Information obtained by: patient, RN notes reviewed and old records reviewed . HPI Narrative: 55-year-old male presents to the ER with chief complaint of right knee pain which has been bothering him over the last 2 to 3 weeks. He has some decreased range of motion noted approximately 45 degrees flexion decreased extension. There is some erythema surrounding the knee. He denies any fever chills body aches no known recent injury. Does have a past medical history of osteoarthri tis, BPH, hypertension, prediabetes. He take methotrexate, Humira, and gabapentin. Related Data Home Medications Medication Instructions Recorded Confirmed ibuprofen 200 mg tablet 400 mg PO Q6H PRN 08/23/19 07/12/21 cyanocobalamin (vitamin B-12) 1,000 mcg PO DAILY 11/16/20 07/12/21 1,000 mcg tablet (Vitamin B-12) multivitamin 1 tab PO DAILY 11/16/20 07/12/21 adalimumab 40 mg/0.8 mL See Rx Instructions subcut .COMPLEX 07/10/21 07/12/21 subcutaneous syringe kit (Humira) folic acid 1 mg tablet 1 mg PO DAILY 07/10/21 07/12/21 gabapentin 300 mg capsule 300 mg PO TID 07/10/21 07/12/21 methotrexate sodium 2.5 mg tablet 5 mg PO QWEEK 07/10/21 07/12/21 Allergies Allergy/AdvReac Type Severity Reaction Status Date / Time meloxicam AdvReac Intermediate Verified 07/12/21 09:08 General Stated Complaint: Orthopedic DINORA: 4 Review of Systems Constitutional Constitutional: Denies body ache(s) and Denies fever(s) Musculoskeletal Musculoskeletal: Reports as per HPI, Denies deformity, Reports arthralgias, Reports joint swelling, Reports limited range of motion and Reports stiffness PFSH All Active Problems (Updated 07/12/21 @ 10:28 by Sue Perez) Degenerative arthritis of right knee (Acute) Paresthesia (Acute) Myalgia (Acute) BPH (benign prostatic hyperplasia) (Chronic) Essential hypertension (Acute) Prediabetes (Acute) Psoriatic arthritis (Acute) Viral syndrome (Acute) Osteoarthritis of right hip (Acute) Medical History No significant past medical history 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 Appears stated age. Normal body habitus. Head: Normocephalic, no trauma. Abdomen: Soft, non-distended, Normoactive bowel sounds all 4 quads. Musculoskeletal: Limping gait, right knee swollen, nonfluctuant, erythemic distal CMS is intact, See extremity assessment below Skin: No suspicious rashes or lesions. Capillary refill less than 2 sec. Neurologic: Cranial nerves II-XII intact. Alert and oriented x 3. Motor: No deficits noted. Sensory: STILL[place]UAM[place], Intact bilaterally all 4 extremities. Hematologic/Lymphatic: No ecchymosis, no lymphadenopathy. Extrem Right lower extremity: knee Details: abnormal to inspection, tenderness, swelling and abnormal ROM Details: pain with active ROM during Details: in extension and in flexion and unable to extend lower leg actively; no lacerations and no crepitus
[2021-07-12 09:44] LABS: Abs Immature Grans 0.01 10^3/uL (0.0-0.06); Absolute Basophil Count 0.05 10^3/uL (0.0-0.2); Absolute Eosinophil Count 0.27 10^3/uL (0.0-0.7); Absolute Lymphocyte Count 2.18 10^3/uL (1.2-3.4); Absolute Monocyte Count 0.59 10^3/uL (0.1-0.8); Absolute Neutrophil Count 2.83 10^3/uL (1.2-6.7); Basophils % 0.8; Eosinophils % 4.6; HCT 47.1 % (40.0-50.0); HGB 15.6 g/dL (13.5-17.5); Immature Grans % 0.2; Lymphocytes % 36.8; MCH 31.5 pg (27.0-33.0); MCHC 33.1 % (32.0-36.0); MCV 95 fL (80-95); MPV 9.5 fL (8.0-11.0); Monocytes % 9.9; Neutrophils % 47.7; Platelet Count 299 10^3/uL (130-400); RBC 4.96 10^6/uL (4.36-5.78); RDW 14.7 % (11.8-14.1); WBC 5.93 10^3/uL (4.4-10.8)
[2021-07-12 09:46] LABS: ESR 10 mm/hr (0-20)
[2021-07-12 10:01] LABS: ALT 33 U/L (16-63); AST 19 U/L (15-37); Albumin 3.8 g/dL (3.4-5.0); Alkaline Phosphatase 104 U/L (46-116); Anion Gap 6.2 mmol/L (3-11); BUN 17 mg/dL (7-18); Bilirubin, Total 0.4 mg/dL (0.2-1.0); C-Reactive Protein 0.07 mg/dL (0.0-0.3); CO2 28.8 mmol/L (21.0-32.0); Calcium 8.7 mg/dL (8.5-10.1); Chloride 107 mmol/L (98-107); Glucose 110 mg/dL (74-106); Potassium 4.4 mmol/L (3.5-5.1); Sodium 142 mmol/L (136-145); Uric Acid 4.7 mg/dL (3.5-7.2)
[2021-07-12] MEDS: traMADol 50 MG TAB PO (10:50)
== END 2021-07-12 10:56 | disposition home or self-care (01) ==
PROVIDERS: Emergency Provider Registered Nurse Emergency; PCP Family Medicine
DX: M17.11 Unilateral primary osteoarthritis, right knee (principal); M25.561 Pain in right knee
CPT/HCPCS: 36415; 73562; 80053; 85652; 99283; 84550; 85025; 86140

== ENCOUNTER 2021-07-16 16:07 | Outpatient (REF) | payer BC, SELFPAY ==
[2021-07-16 20:49] LABS: Calculated LDL 154 mg/dL (<100); Cholesterol 237 mg/dL (<200); HDL Cholesterol 53 mg/dL (40-60); Triglyceride 153 mg/dL (<150)
== END 2021-07-16 16:08 | disposition home or self-care (01) ==
LOC: NCHCN 16:07
PROVIDERS: PCP Family Medicine; Visit Provider Nurse Practitioner Family
DX: E78.5 Hyperlipidemia, unspecified (principal); R73.03 Prediabetes; I10 Essential (primary) hypertension; R20.2 Paresthesia of skin
CPT/HCPCS: 80061

== ENCOUNTER 2021-07-24 15:12 | Outpatient (REF) | payer BC, SELFPAY ==
[2021-07-24 23:43] LABS: PSA, Screening 2.1 ng/mL (<=4.5)
== END 2021-07-24 15:13 | disposition home or self-care (01) ==
LOC: NCHCN 15:12
PROVIDERS: PCP Family Medicine; Visit Provider Nurse Practitioner Family
DX: R31.21 Asymptomatic microscopic hematuria (principal); Z80.52 Family history of malignant neoplasm of bladder; Z12.5 Encounter for screening for malignant neoplasm of prostate
CPT/HCPCS: 84153

== ENCOUNTER → 2021-09-11 02:44 | Outpatient (CLI) | payer BC, SELFPAY ==
--- NOTE | 2021-09-11 07:45 | DI.MRI_ITS ---
Exam(s) MR LOWER JOINT RT WO EXAM: MR LOWER JOINT RT WO CLINICAL HISTORY: PAIN,MASS JOINT OF RT KNEE, M25.861,M17.11,OA RT KNEE,. TECHNIQUE: Multiplanar multisequence MRI was performed. COMPARISON: CR XR KNEE RT 3V AP,LAT,ANY from 07/12/2021 FINDINGS: BONES: There is no fracture or contusion pattern. JOINTS: In the medial femoral tibial joint space there is loss of the articular cartilage in flatteni ng of the articular surfaces. Hypertrophic changes are seen medially. Subchondral edema and cysts a re present. The findings are consistent with marked degenerative changes. There is thinning of the articular cartilage in mild subchondral edema in the lateral patellar facet. In the lateral femoral tibial joint the articular cartilage is well maintained. Bony hypertrophy is seen laterally. There is a small joint effusion. TENDONS: Extensor mechanism: Unremarkable. Medial retinaculum: Unremarkable. Lateral retinaculum: Unremarkable. Popliteus: Unremarkable. MUSCLES: Unremarkable. MENISCI: There is a tear of the body and the posterior horn of the medial meniscus. The lateral meni scus is unremarkable. SOFT TISSUES: There is a multiloculated complex cystic mass adjacent to the medial meniscus it measur es 6.5 AP by 2.9 transverse by 5.1 craniocaudad cm. It displaces the medial collateral ligament medi ally. LIGAMENTS: Anterior Cruciate: Unremarkable. Posterior Cruciate: Unremarkable. Medial Collateral:There is thin hyperintense signal within the medial collateral ligament proximally suggestive of a tear. Lateral Collateral: Unremarkable. OTHER: IMPRESSION: 1. Tear of the body and posterior horn of the medial meniscus. 2. Large complex multiloculated cystic lesion adjacent to the medial meniscus. The findings are conc erning for large parameniscal cyst. A hematoma, seroma or cystic neoplasm may be considered. 3. Tear of the medial collateral ligament. 4. Marked degenerative changes of the knee particularly involving the medial femoral tibial joint. 5. Small joint effusion. DATA REPOSITORY:
== END ==
PROVIDERS: PCP Family Medicine; Visit Provider Student in an Organized Health Care Education/Training Program
DX: M17.11 Unilateral primary osteoarthritis, right knee (principal); M25.861 Other specified joint disorders, right knee; S83.411A Sprain of medial collateral ligament of right knee, initial encounter; S83.211A Bucket-handle tear of medial meniscus, current injury, right knee, initial encounter; X58.XXXA Exposure to other specified factors, initial encounter
CPT/HCPCS: 73721

== ENCOUNTER 2021-10-23 13:13 | Outpatient (CLI) | payer BC, SELFPAY ==
--- NOTE | 2021-10-23 12:30 | DI.RAD_ITS ---
Exam(s) XR KNEE RT 1V XR STANDING ALIGNMENT EXAM: XR STANDING ALIGNMENT CLINICAL HISTORY: pre op R TKA. TECHNIQUE: 2D digital imaging was performed. Standing AP views were performed from the pelvis throu gh the ankles. Lateral view right knee with COMPARISON: CR XR KNEE RT 1V from 10/23/2021 FINDINGS: BONES: No acute fracture is present. No bony destructive lesion is seen. There is no significant ov erall leg length discrepancy. JOINTS: Knees: Severe narrowing of both medial femoral tibial joint spaces with varus angulation. Th ere is some anterior soft tissue swelling be visible on the lateral view of the right knee as well as a small joint effusion. The ankle joints show prominent spurring of the left medial malleolus. The hip joints show acetabul ar spurring. SOFT TISSUE: Normal. IMPRESSION: No significant leg length discrepancy. Severe degenerative changes of both medial femoral tibial kathleen nt spaces. DATA REPOSITORY: RADIATION DOSE DELIVERED:
== END 2021-10-23 13:14 | disposition home or self-care (01) ==
LOC: DIORS 13:14
PROVIDERS: PCP Family Medicine; Referring Provider Family Medicine; Visit Provider Physician Assistant
DX: M25.861 Other specified joint disorders, right knee (principal); M25.561 Pain in right knee; M25.461 Effusion, right knee; M79.89 Other specified soft tissue disorders; M17.11 Unilateral primary osteoarthritis, right knee
CPT/HCPCS: 73560; 77073

== ENCOUNTER 2021-10-29 03:28 | Outpatient (CLI) | payer BC, SELFPAY ==
[2021-10-29 12:19] LABS: Abs Immature Grans 0.03 10^3/uL (0.0-0.06); Absolute Basophil Count 0.05 10^3/uL (0.0-0.2); Absolute Eosinophil Count 0.17 10^3/uL (0.0-0.7); Absolute Lymphocyte Count 3.26 10^3/uL (1.2-3.4); Absolute Monocyte Count 0.85 10^3/uL (0.1-0.8); Absolute Neutrophil Count 5.17 10^3/uL (1.2-6.7); Basophils % 0.5; Eosinophils % 1.8; HCT 44.5 % (40.0-50.0); HGB 14.9 g/dL (13.5-17.5); Immature Grans % 0.3; Lymphocytes % 34.2; MCH 30.5 pg (27.0-33.0); MCHC 33.5 % (32.0-36.0); MCV 91 fL (80-95); MPV 9.8 fL (8.0-11.0); Monocytes % 8.9; Neutrophils % 54.3; Platelet Count 322 10^3/uL (130-400); RBC 4.89 10^6/uL (4.36-5.78); RDW 13.6 % (11.8-14.1); RDW-SD 45.8 fL; WBC 9.53 10^3/uL (4.4-10.8)
[2021-10-29 12:43] LABS: ALT 30 U/L (16-63); AST 19 U/L (15-37); Albumin 3.5 g/dL (3.4-5.0); Alkaline Phosphatase 96 U/L (46-116); Anion Gap 5.7 mmol/L (3-11); BUN 22 mg/dL (7-18); Bilirubin, Total 0.4 mg/dL (0.2-1.0); CO2 31.3 mmol/L (21.0-32.0); CREATININE 0.9 mg/dL (0.70-1.30); Chloride 104 mmol/L (98-107); Estimated GFR 95.37 (mL/min/1.73m2); Glucose 115 mg/dL (74-106); Potassium 4.6 mmol/L (3.5-5.1); Sodium 141 mmol/L (136-145); Total Protein 7.3 g/dL (6.4-8.2)
== END 2021-10-29 03:29 | disposition home or self-care (01) ==
LOC: LBO 03:28
PROVIDERS: PCP Family Medicine; Referring Provider Internal Medicine; Visit Provider Student in an Organized Health Care Education/Training Program
DX: L40.50 Arthropathic psoriasis, unspecified (principal); Z79.899 Other long term (current) drug therapy
CPT/HCPCS: 36415; 80048; 80053; 85027; 85025

== ENCOUNTER 2021-10-30 09:41 | Day surgery (SDC) | payer BC, SELFPAY ==
[2021-10-30] VITALS (12 sets, daily range): BP systolic 119–151; BP diastolic 76–100; PULSE 64–89; RESP 11–24; TEMP 36.3–36.6; O2SAT 95–99; BMI 29.2
--- NOTE | 2021-10-30 09:03 | W.PM.DSUDISC ---
Discharge Plan Disposition Patient Disposition: HOME Condition: Good Discharge Details Reason For Visit: Right TKA Attending Provider: Blue Bolivar Primary Care Provider: Matthew Medina Home Meds and New Rx's Prescriptions: New aspirin 81 mg tablet,delayed release (DR/EC) 81 mg PO BID Qty: 60 0RF acetaminophen 500 mg capsule 1,000 mg PO Q8H PRN PRNQty: 90 0RF celecoxib [Celebrex] 200 mg capsule 200 mg PO BID Qty: 60 0RF pantoprazole [Protonix] 40 mg tablet,delayed release (DR/EC) 40 mg PO DAILY Qty: 30 0RF gabapentin 300 mg capsule 300 mg PO QHS Qty: 14 0RF oxycodone 5 mg tablet 5 mg PO Q4H PRNQty: 18 0RF Continued Humira 40 mg/0.8 mL syringe kit See Rx Instructions subcut .COMPLEX Rx Instructions: inject one - 40 mg/0.8 mL syringe every 2 weeks subcut multivitamin Tablet 1 tab PO DAILY cyanocobalamin (vitamin B-12) [Vitamin B-12] 1,000 mcg Tablet 1,000 mcg PO DAILY Discharge Instructions Additional Instructions: Total Knee Discharge Instructions Activity: The most important activity is to walk. You should try to take short walks a few times a day. It is important that when resting you work on keeping the knee straight. Avoid putting a pillow behind the knee as this will encourage flexion. Work on range of motion exercises as provided by Physical Therapy. - Start outpatient physical therapy within 2 weeks. - You should wear the FRANCES hose on both legs for 2 weeks. You may remove these at night. You may also use any compression sock in place of the FRANCES hose. - Utilize [employer] to review exercises, see videos on exercises and obtain basic information pertaining to your surgery and your recovery. Dressing: Remove the Micky wrap by 2 days after your surgery and put on the FRANCES stocking given to you from the hospital. Keep the surgical dressing (underneath the MICKY wrap) in place for at least one week. After the first week it may be removed and replaced with light gauze and tape or nothing. The wound and dressing may get wet after 3 days but avoid soaking the dressing or otherwise it will need to be changed. Many people prefer covering the dressing with cling wrap (saran wrap) to minimize it from getting soaked. If it gets wet, just pat dry. If it starts to peel off then it will need to be changed. Medications: - You should take Tylenol and anti-inflammatory Celebrex as your primary pain control medications. If the Celebrex is too expensive or not covered, please call the office for another alternative (Advil/Ibuprofen or Naproxen/Aleve) - You have been prescribed a stronger pain medication Oxycodone for breakthrough pain, take as needed as prescribed. - You have also been prescribed a stomach acid reduction agent Pantoprozole to help reduce stomach acid and reflux. - You have been prescribed Gabapentin to take at night for restlessness and nerve pain. - You will be taking Aspirin 81mg twice a day for DVT prevention unless instructed otherwise. - If you have constipation you should take Colace or Miralax (both domd-ill-ewvxyjc). It takes most people 3-4 days to have a bowel movement. Follow-up: 2 weeks If you have any acute concerns or questions, please do not hesitate to contact the office at [phone]. You may contact Dr. Bolivar with any questions after hours through the hospital at [phone] or on his cell phone at [phone]. Referrals: Blue Bolivar MD [ [facility] STAFF PHYSICIAN] - Equipment/Supplies: Walker Activity:: Activity as Tolerated Remove Dressings/Wound Care:: Do Not Remove Shower/Bathe:: 72 hours Diet:: As Tolerated Discharge Orders Discharge Orders: Discharge Order (Routine); Ordered 10/30/21 Ordered By: Isa Cason DS: Diagnosis Discharge Diagnosis (1) Degenerative arthritis of right knee: Status: Inactive
[2021-10-30] MEDS: Celecoxib 200 MG CAP 400 MG PO (10:25)
[2021-10-30] MEDS: Gabapentin 300 MG CAP PO (10:25)
[2021-10-30] MEDS: Acetaminophen 500 MG TAB 1000 MG PO (10:25)
[2021-10-30] MEDS: Lactated Ringers 1,000 ML 80 ML IV (10:35)
--- NOTE | 2021-10-30 10:48 | ANES.PREOP_ITS ---
General Info Date of Service Date Performed: 10/30/21 Height: 6 ft 3 in Weight: 106.141 kg Body Mass Index (BMI): 29.2 Surgical Procedure: Operation Date: 10/30/21 12:55 Proposed Procedure Side Surgeon p Knee Total Arthroplasty Cementless PS Right Blue Bolivar MD Meds Allergies and Home Medications Allergies Allergy/AdvReac Type Severity Reaction Status Date / Time meloxicam AdvReac Intermediate Verified 10/29/21 10:49 Home Medication Medication Instructions Recorded cyanocobalamin (vitamin B-12) 1,000 mcg PO DAILY 11/16/20 1,000 mcg tablet (Vitamin B-12) multivitamin 1 tab PO DAILY 11/16/20 adalimumab 40 mg/0.8 mL See Rx Instructions subcut .COMPLEX 07/10/21 subcutaneous syringe kit (Humira) acetaminophen 500 mg capsule 1,000 mg PO Q8H PRN PRN #90 caps 10/30/21 aspirin 81 mg tablet,delayed 81 mg PO BID #60 tabs 10/30/21 release celecoxib 200 mg capsule (Celebrex) 200 mg PO BID #60 caps 10/30/21 gabapentin 300 mg capsule 300 mg PO QHS #14 caps 10/30/21 oxycodone 5 mg tablet 5 mg PO Q4H PRN #18 tabs 10/30/21 pantoprazole 40 mg tablet,delayed 40 mg PO DAILY #30 tabs 10/30/21 release (Protonix) Current Visit Medications: Current Medications Generic Name Dose Route Start Last Admin Trade Name Freq PRN Reason Stop Dose Admin Acetaminophen 1,000 mg 10/30/21 06:00 10/30/21 10:25 Acetaminophen 500 Mg Tab PO 10/30/21 16:00 1,000 mg PREOP BALDEMAR Administration Acetaminophen 1,000 mg 10/30/21 08:30 Acetaminophen 500 Mg Tab PO TID BALDEMAR Aspirin 81 mg 10/30/21 08:30 Aspirin E.C. 81 Mg Tabec PO BID BALDEMAR Celecoxib 400 mg 10/30/21 06:00 10/30/21 10:25 Celecoxib 200 Mg Cap PO 10/30/21 16:00 200 mg PREOP BALDEMAR Administration Celecoxib 200 mg 10/30/21 08:30 Celecoxib 200 Mg Cap PO BID BALDEMAR Docusate Sodium 100 mg 10/30/21 06:53 Docusate Sodium 100 Mg Cap PO BID PRN PRN Constipation Gabapentin 300 mg 10/30/21 06:00 10/30/21 10:25 Gabapentin 300 Mg Cap PO 10/30/21 16:00 300 mg PREOP BALDEMAR Administration Gabapentin 300 mg 10/30/21 22:00 Gabapentin 300 Mg Cap PO HS BALDEMAR Hydromorphone HCl 0.5 mg 10/30/21 06:53 Hydromorphone 2 Mg/Ml Syr IVP Q2H PRN PRN Tranexamic Acid 1,000 mg/ 60 mls @ 360 mls/hr 10/30/21 06:00 Sodium Chloride IVPB 10/30/21 16:00 PREOP BALDEMAR Ringer's Solution 1,000 mls @ 80 mls/hr 10/30/21 06:00 10/30/21 10:35 IV 11/28/21 23:59 80 mls/hr INFUSION BALDEMAR Administration Cefazolin Sodium/Dextrose 2 gm in 50 mls @ 100 mls/hr 10/30/21 06:00 Ancef Duplex IVPB 10/30/21 16:00 PREOP BALDMEAR Cefazolin Sodium/Dextrose 1 gm in 50 mls @ 100 mls/hr 10/30/21 18:00 Ancef Duplex IVPB 10/31/21 10:29 Q8H BALDEMAR IV Miscellaneous Supplies 1 each 10/30/21 06:00 Iv Access IV 11/28/21 23:59 DIRECTED BALDEMAR Ondansetron HCl 4 mg 10/30/21 06:53 Ondansetron 4 Mg/2 Ml Vial IVP Q6H PRN PRN Nausea Oxycodone HCl 0 mg 10/30/21 06:53 Oxycodone 5 Mg Tab PO Q3H PRN PRN Pain Pantoprazole Sodium 40 mg 10/30/21 07:30 Pantoprazole 40 Mg Tabcr PO DAILY@0730 BALDEMAR Sodium Chloride 0 ml 10/30/21 06:00 Normal Saline Flush 10 Ml Syr IV 11/28/21 23:59 PRN PRN Sodium Chloride 0 ml 10/30/21 06:00 Normal Saline 10 Ml Vial IJ 11/28/21 23:59 DIRECTED PRN Sterile Water 0 ml 10/30/21 06:00 Water,Injection,Sterile 10 Ml Vial IJ 11/28/21 23:59 DIRECTED PRN PFSH Active Problems Active Problems: Problem Status Onset Code Mass of joint of right knee M25.861 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 Paresthesia R20.2 Myalgia M79.10 BPH (benign prostatic hyperplasia) N40.0 Essential hypertension I10 Prediabetes R73.03 Psoriatic arthritis L40.50 Viral syndrome B34.9 Osteoarthritis of right hip M16.11 Medical History Medical History No significant past medical history 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 Surgical History Surgical History History of left knee surgery Tobacco Smoking/Tobacco Use Status: Former Tobacco Use Alcohol Alcohol Intake: current Alcohol intake frequency: a few times a month Alcohol type: beer and wine Substance Use Substance use: Never Substance use type: does not use Vital Signs and Lab Results Vital Signs Most Recent Vital Signs in EMR: Most Recent Vital Signs Temp Pulse Resp BP Pulse Ox 36.6 C 89 18 136/100 H 98 10/30/21 10:07 10/30/21 10:07 10/30/21 10:07 10/30/21 10:07 10/30/21 10:07 Lab Results Blood Type / Crossmatch: No Data to Display Complete Blood Count: White Blood Count 9.53 10^3/uL (4.4-10.8) 10/29/21 11:43 Red Blood Count 4.89 10^6/uL (4.36-5.78) 10/29/21 11:43 Hemoglobin 14.9 g/dL (13.5-17.5) 10/29/21 11:43 Hematocrit 44.5 % (40.0-50.0) 10/29/21 11:43 Platelet Count 322 10^3/uL (130-400) 10/29/21 11:43 Complete Metabolic Panel: Sodium Level 141 mmol/L (136-145) 10/29/21 11:43 Potassium Level 4.6 mmol/L (3.5-5.1) 10/29/21 11:43 Chloride Level 104 mmol/L (98-107) 10/29/21 11:43 Carbon Dioxide Level 31.3 mmol/L (21.0-32.0) 10/29/21 11:43 Blood Urea Nitrogen 22 mg/dL (7-18) H 10/29/21 11:43 Creatinine 0.9 mg/dL (0.70-1.30) 10/29/21 11:43 Calcium Level 9.0 mg/dL (8.5-10.1) 10/29/21 11:43 Albumin 3.5 g/dL (3.4-5.0) 10/29/21 11:43 Glucose Level 115 mg/dL (74-106) H 10/29/21 11:43 Liver Function Panel: Alanine Aminotransferase (ALT/SGPT) 30 U/L (16-63) 10/29/21 11: 43 Aspartate Amino Transf (AST/SGOT) 19 U/L (15-37) 10/29/21 11:43 Coagulation Panel: No Data to Display Cardiac Panel: No Data to Display Arterial Blood Gas: No Data to Display Venous Blood Gas: No Data to Display Pancreas Panel: No Data to Display Thyroid Panel: No Data to Display Infectious Disease: No Data to Display Blood Cultures: No Data to Display Toxicology Panel: No Data to Display Anesthesia Assessment and Plan Anesthesia History Personal History: No History of Anesthesia Complications Family History: No Family History of Anesthesia Complications Exercise Tolerance Exercise Tolerance: Metabolic Equivalents>4 Cardiac & Pulmonary Exam Cardiac Exam: Normal S1/S2 Heart Sounds Pulmonary Exam: Clear Bilateral Breath Sounds Implantable Cardiac Device Does patient have a Pacemaker or an ICD?: No Airway Exam Known Difficult Airway: No Mallampati Class: 2 Mouth Opening: Normal (> 3cm) Thyromental Distance: Greater than 3 cm Neck Range of Motion: Full ROM Neck Circumference: Normal Teeth Condition: Normal Dentition ASA Classification ASA Score: ASA 2 Emergency Case?: No NPO Status NPO Status: NPO Clears >2 hours, Solids >8 hours Anesthesia Plan Resuscitation Status: Full Code Anesthesia Technique: Spinal Anesthesia Airway Planned: Natural Airway Pain Management: Surgeon and patient request nerve block Monitors Used: Standard Monitors
--- NOTE | 2021-10-30 12:03 | W.ANESNERVE ---
Nerve Block Single Injection Procedure Date and Time Date Performed: 10/30/21 Procedure Start: 11:30 Location Where Procedure Performed Procedure Location: Day Surgery Unit Reason Performed: Postoperative Analgesia Requesting Provider: Blue Bolivar Timeout Performed Timeout Performed: Yes Monitoring Used Blood Pressure, SpO2 and See EMR for corresponding vital signs Sterility Sterility: Hand Hygiene, Surgical Cap, Surgical Mask, Sterile Gloves, Eye Protection, Chlorhexidine and Betadine Sedation Given During Procedure Sedation Given (Indicate Dose Given): Versed IV Dose:: 2mg Patient Mental Status Patient Mental Status: Awake Nerve Block 1st Nerve Block: Laterality: Right Block Type: Adductor Canal Needle / Catheter Used: 100mm SonoPlex II Local Anesthetic Bolus (Indicate Dose Given): Lidocaine used for local infiltration of skin and Bupivacaine 0.25% Dose:: 15ml Additives (Indicate Dose Given): Precedex Dose:: 100mcg Ultrasound: Sterile probe cover and gel used Ultrasound Image Saved?: Yes Nerve Stimulator: Not Used Paresthesia: None Procedure Tolerated: No Complications Procedure Outcome: Successful Performed By: Cheyanne Amaro Supervised By: Brian Saenz
[2021-10-30] MEDS: ceFAZolin 2 GM/50 ML BAG IVPB (12:16)
[2021-10-30] MEDS: HYDROmorphone 2 MG/ML SYR IVP (15:15)
[2021-10-30] MEDS: Normal Saline 10 ML VIAL IJ (15:16)
--- NOTE | 2021-10-30 15:53 | IN_ITS ---
Date of service: 10/30/21 Time of Service: 15:53 PT Notes Visit Reasons: Right TKA Physical Therapy Day Surgery Initial Evaluation Date: 10/31/2021 Referring Doctor: HAYDE Majano PT Orders: PT CONSULT: S/P Ortho surgery Precautions: WBAT on right LE with AD. Patient Profile/Admitting Diagnosis: Ahsan is a 66-year-old male with degenerative joint disease of the right knee with large anteromedial cyst status post right total knee arthroplasty on postoperative day 0. PMHX: Medical History? 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 History of left knee surgery Social History/Home Situation: Lives with in a private home with 3 steps to enter with rails on both sides. Independent with all aspects of ADLs prior to surgery. Equipment Owned/DME: [facility] Subjective: Agreeable to PT consult. Complains of sciatic nerve pain through the right thigh and proximal leg at 5/10. Objective: General Observation: Supine in bed. ESTIVEN wraps to right LE. Cryocuff to right knee. Mental Status: Alert and oriented x4 Pain: 5/10 scaitic nerve pain ROM: Right Lower Extremity: Hip flexion WFL. Hip abduction WFL. Knee flexion 20 degrees to 90 degrees. Knee extension -20 degrees. Ankle dorsiflexion WFL. Ankle plantarflexion WFL. Left Lower Extremity: Hip flexion WFL. Hip abduction WFL. Knee flexion WFL. Ankle dorsiflexion WFL. Ankle plantarflexion WFL. Strength: Right Lower Extremity: Hip flexors 4/5. Hip abductors 4/5. Knee flexors 3-/5. Knee extensors 3-/5. Ankle dorsiflexors 5/5. Ankle plantarflexors 5/5. Left Lower Extremity:Hip flexors 5/5. Hip abductors 5/5. Knee flexors 5/5. Knee extensors 5/5. Ankle dorsiflexors 5/5. Ankle plantarflexors 5/5. [id number] moderate Sensation: Intact as to pain and light pressure in bilateral lower extremities Bed Mobility/Transfers: Supine to sit standby assist Sit to stand contact-guard assist Stand to sit standby assist Bed to chair standby assist Gait: Patient with level surface ambulation of 150 feet using front wheeled walker with step through gait pattern with standby assist. Complained of sciatic nerve pain throughout activity that needed 2-3 standing rests with stretches. Denies headache, chest pain, and lightheadedness throughout session. Stairs: Completed up and down 6 x 4 inch steps and 4 x 6 inch steps while holding onto bilateral rails with step to gait pattern requiring only standby assist. Balance: Static Sitting: Normal Dynamic Sitting: Normal Static Standing: Fair Dynamic Standing: Fair Special Tests: Mobility Limitations Standardized Measure [facility] 6 clicks Basic Mobility Inpatient Short Form: Raw Score: 21 CMS Score: 29% deficit Informed Consent/Education: Patient instructed in purpose of PT consult. Education and training on initial set of exercises that can be done at home have been completed with patient with reference to the [employer] erasto. Assessment: Patient requires the use of a front wheel walker for all mobility ADL performance to maximize independence and reduce fall risk. Patient presents with clinical signs and symptoms consistent with current/admitting diagnoses that have resulted to mobility limitations, gait instability, generalized weakness, and impairment of motor control as demonstrated by the following impairment level findings: 1. Decreased strength to R knee major muscle groups 2. Impaired standing balance 3. Limitation of joint range of motion in R knee Impairments are contributing to the following functional limitations: 1. Inability to safely ambulate without assistive device 2. Increase completion time for mobility ADL performance 3. Increased fall risk Patient is assessed as a 16128 moderate complexity based on the following: History: 66-year-old male with impairment level findings, functional limitations, and past medical history as indicated above Examination: Demonstrable impairment in strength, balance, and mobility level with underlying impairments and functional limitations as documented above Presentation: Evolving Decision Makin moderate complexity Goals: N/A. PT evaluation and 1-2 treatment sessions only for functional mobility training using recommended AD and for HEP instruction. Plan of Care/Treatment Plan: N/A. PT evaluation and 1-2 treatment session only for functional mobility training using recommended AD and for HEP instruction. DISCHARGE RECOMMENDATIONS: [] Home with no services [] [] Home with services [specify] [X] Home with outpatient PT. Home when medically cleared by orthopedic surgeon. Will benefit from outpatient PT services in order to maximize functional outcomes and facilitate independent community ambulation without an assistive device. [] SNF for continued rehabilitation [] [] [facility] [] [] SNF versus LTC based on ability to participate and progress [] TREATMENT CODE/TIME: 64619 x 20 minutes, 95278 x 13 minutes beginning at 15:53 PM. Thank you for the opportunity to participate in the care of this patient. Alba Lipscomb PT, DPT, CLT [facility] [place], [place]
[2021-10-30] MEDS: oxyCODONE 5 MG TAB PO (16:41)
--- NOTE | 2021-10-30 21:01 | W.PM.OP ---
Date of service: 10/30/21 Time of Service: 13:40 Operative Note Operative Note DATE OF PROCEDURE: 10/30/21 PRE-OP DIAGNOSIS: Right Knee Arthritis with Large Anteromedial Cyst POST-OP DIAGNOSIS: same PROCEDURE: Right Total Knee Replacement SURGEON: Blue Bolivar MACHINE TOOL MECHANIC: Isa Cason ANESTHESIA TYPE: Spinal Refer to Anesthesia Record ESTIMATED BLOOD LOSS: 100 PATHOLOGY: none sent TOURNIQUET TIME: 0 COMPLICATIONS: None Patient was transported to: PACU Patient's condition: stable Implants: 1. Depuy Attune Cementless Cruciate Retaining Femoral Component, Size 8 2. Depuy Attune Cementless Rotating Platform Tibial Component, Size 8 3. Depuy Attune 8x7 CR/RP Poly 4. Depuy Attune Patellar Component, Size 38 Indications: I have seen Ahsan in clinic for symptoms of knee arthritis, confirmed with radiographic findings. Ahsan has exhausted nonoperative methods and was having significant limitations in daily function and desired better function and less pain. I discussed the technical details of a knee replacement. I explained the risks of the procedure to include, but not limited to, bleeding, infection, pain, stiffness, fracture, damage to nerves and vessels, damage to muscles and tendons, loosening, need for repeat procedure, blood clot and cardiopulmonary demise. Despite these risks, Ahsan elected to proceed. Findings: There was significant signs of arthritis throughout the knee involving all 3 compartments. There was a large, complex synovial cyst in the anterior medial between the capsule and synovium. Procedure Description: Ahsan was greeted in the preoperative holding area where the correct side was identified and marked. The consent was reviewed with the patient and signed. The history and physical was updated. All questions were answered. Preoperative medications were administered: Acetaminophen 1000mg, Celebrex 400mg, and Gabapentin 300mg. An adductor canal block was then administered by the anesthesia team in the PACU. Ahsan was taken back to the operating room. A spinal anesthestic was then administered. The patient was placed into the supine position on the operating room table. A nonsterile tourniquet was placed high onto the leg but only used for cementing. Posts were placed for positioning during the procedure. All bony prominences were well padded. Prophylactic antibiotics in the form of Cefazolin were administered. 1g of Tranxemic Acid was given intravenously within 30 minutes of incision. The right leg was then prepped with Chloraprep and draped in a standard fashion with impervious stockinette. A second prep with Chloraprep was performed prior to application of Iodine impregnated skin protection. A timeout to confirm correct identity, side and site, procedure, allergies, anesthesia, and medical concerns was performed. With the knee in some flexion, a midline incision was made overlying the knee. Full thickness skin flaps were raised once the extensor mechanism was encountered. These were raised medially and laterally. Any bleeding was controlled with electrocautery. Once the extensor mechanism was fully exposed, a medial parapatellar arthrotomy was performed in a flexed position. The large cyst was quite prominent and located right beneath the capsule. All bleeding from the arthrotomy and the geniculate arteries was coagulated. The cyst was entered and copious amounts of cystic, synovial fluid was removed along with some debris which appeared cartilaginous. It was located between the capsul and the synovium. MCL was intact. There was a thin capsular rind to this which was debrided with a rongeur and curette. Then, a medial subperiosteal peel was performed with electrocautery to the midcoronal plane. Due to the significant varus deformity the entire medial tibial plateau was exposed. The fat pad was removed while keeping the patellar tendon protected. The anterior distal femur synovium was removed for later visualization. The ACL and PCL were resected and the anterior horn of the lateral meniscus was transected. The knee was then flexed with the patella everted. Large osteophytes from the tibia were removed. Large osteophytes from the femur were removed. Using a step drill, and based on preoperative templating, the femoral canal was entered. This was done with a step drill without any difficulty. The intramedullary distal femoral cut guide was inserted, set to a 6 degree valgus cut and 9mm cut thickness. The distal femoral cut guide was then held in position and pinned. With the soft tissues protected, the distal cut was performed. This was passed over a few times to ensure a planar cut. I then turned attention to the tibia. The extramedullary guide was placed onto the leg. The distal aspect was slid medial to adjust for position of center of ankle and stay in line with shaft of the tibia. Approximately 3-5 degrees of posterior slope was kept in the proximal cutting guide. The center of the guide was aligned with the PCL. The stylus was used to assess cut thickness. The medial side, most involved side, was set for a 4mm cut. This was then held in position and pinned into place with 2 additional pins and a cross pin for stability. The medial and lateral collateral ligaments were protected and the cut was performed. With this completed, it was assessed and noted to be of appropriate dimensions. The guide was removed. A spacer block was inserted and the knee was brought into extension. The 7mm spacer block provided full extension, without hyperextension and with stability of both the medial and lateral collateral ligaments was assessed. The pins from the femur and the tibia were then removed. The distal femur was then sized. The anterior stylus was placed onto the lateral ridge of the anterior femur. This indicated a size 8 femur. The external rotation of the guide was adjusted to 5 degrees to match the epicondylar axis, perpendicular to Chassell?s line. The 4-in-1 cutting guide was the placed. The posterior medial femur cut was evaluated and appeared of good thickness. The spacer block was inserted underneath the cutting guide and stability was confirmed in 90 degrees of flexion. An adore wing was used to confirm appropriate position of the anterior cut to avoid notching. This cutting guide was ensured to be flush on the cut surface and then pinned into place with headed pins. While protecting the soft tissues, quad tendon, and collateral ligaments, the anterior and posterior cuts were performed with a saw. The central two pins were removed and the posterior and anterior chamfers were cut next. The notch-cutting guide was placed. This was pinned to lateralize the femoral component as much as possible while keeping it flush on the cut surface. This was then pinned into position. A reciprocating saw was used to make the notch cut. A rasp smoothed the cut surfaces. The medial and lateral menisci were removed. A trial femoral component was then inserted, impacted down to the cut surfaces, and the lug holes were drilled. A provisional trial tibial component was placed and the knee was brought through range of motion. There was noted to be excellent extension and flexion. There was no significant instability. The polyethylene was trialed until there was good flexion and extension with excellent stability to the medial and lateral collaterals. The patella was tracking without thumbs. A size 7mm polyethylene component provided the best range of motion and stability with less than 2mm gapping with medial and lateral stress and full extension without significant hyperextension. The tibial cut surface was fully exposed. The tibia was then sized as a 8. The tibia had been previously marked during trialing to correspond to the center of the tibial component to help with rotation. The trial was aligned to this tiburcio, approximately rotated to the medial 1/3rd of the tibial tubercle. The trial was pinned into place. The tibia was prepared with a reamer and a keel punch and lug holes. The knee was then brought into extension and the patella was measured as 28mm. Using the patellar clamp and cut guide, this was resected to a flat surface with at least 13mm of thickness remaining. The size 38 patella fit the best. This was oriented and then clamped into position. The lugs were drilled. The trial components were removed. The final components were opened on the back table. The periosteal and capsular tissues, especially posteriorly, around the knee were then systematically injected with a periarticular cocktail consisting of 246mg of Ropivacaine, 0.5mg of Epinephrine, 0.08mg of Clonidine, and 30mg of Ketorolac, diluted to 100cc. On the back table, with the implants opened, the cement was mixed. One batch of high viscosity cement was prepared with vacuum assistance. After the cement was ready a small amount was placed on the cut surface of the patella and the patellar button was clamped into position and held. While the cement was hardening, the cementless knee components were placed. Starting with the tibial component, the tibia was subluxed anteriorly and the lug holes of the component were lined up. The tibia was then impacted with an impactor and mallet until the tibial component was in contact with the tibia. The final polyethylene component was inserted. Then, the femoral component was inserted. The lug holes were aligned and the component was impacted into position. The knee was irrigated with Surgiphor Betadine solution. This was allowed to sit in the knee for 3 minutes and then it was irrigated out with saline. After the cement had finally cured, approximately 15min, the clamp was removed from the patella and the knee was taken through range of motion. The patella was tracking with a no-thumbs technique. The capsule was then reapproximated with a No. 1 Vicryl at multiple locations. The capsule was finally closed with a No. 2 Stratafix, barbed suture. The second dosing of 1g TXA was started. Deep tissues were then reapproximated with 0 Vicryl and 2-0 Vicryl. The skin was closed with a running 3-0 Monocryl in a subcuticular fashion. This was reinforced with skin glue. A Mepilex silver dressing was applied along with a [id number] ESTIVEN wrap. A CryoCuff was applied. Ahsan was transferred to the hospital bed without difficulty an suffering no apparent complication. Ahsan has a good prognosis. Physical therapy will start today and without restrictions, weight-bearing as tolerated. Aspirin 81mg BID will be used for DVT prophylaxis.
== END 2021-10-30 17:40 | disposition home or self-care (01) ==
PROVIDERS: PCP Family Medicine; Visit Provider Student in an Organized Health Care Education/Training Program
PROC: (CPT 27447; principal; 2021-10-30 12:45)
DX: M17.11 Unilateral primary osteoarthritis, right knee (principal); R73.03 Prediabetes; I10 Essential (primary) hypertension
CPT/HCPCS: 27447; 76942; 97162; 97530; J0690; J1100; J1170; J2250; J2370; J2405; J2704

== ENCOUNTER 2021-11-12 14:41 | Outpatient (CLI) | payer BC, SELFPAY ==
--- NOTE | 2021-11-12 13:00 | DI.RAD_ITS ---
Exam(s) XR KNEE RT 1V XR STANDING ALIGNMENT EXAM: XR STANDING ALIGNMENT CLINICAL HISTORY: f/u R TKA. TECHNIQUE: 2D digital imaging was performed. Standing AP views were performed from the pelvis throu gh the ankles. COMPARISON: Lateral view right knee CR XR STANDING ALIGNMENT from 10/23/2021 CR XR KNEE RT 1V from 11/12/2021 FINDINGS: BONES: No acute fracture is present. No bony destructive lesion is seen. Leg length discrepancy: There is an overall leg length discrepancy at the level of the femoral heads with the right projecting 17 millimeters superior to the left. JOINTS: Knees: Right knee prosthesis. A joint effusion and some anterior soft tissue swelling are no migue.There are severe degenerative changes of the medial femoral tibial joint of the left knee causing severe varus angulation. Findings a appear to have worsened when compared with the prior exam. The ankle joints are maintained and show periarticular spurring.. The hip joints are unremarkable. SOFT TISSUE: Normal. IMPRESSION: Severe degenerative changes the medial femoral tibial joint space of left knee. A significant leg length discrepancy is now present. DATA REPOSITORY: RADIATION DOSE DELIVERED:
== END 2021-11-12 14:42 | disposition home or self-care (01) ==
LOC: DIORS 14:41
PROVIDERS: PCP Family Medicine; Referring Provider Family Medicine; Visit Provider Student in an Organized Health Care Education/Training Program
DX: M25.561 Pain in right knee (principal); M17.11 Unilateral primary osteoarthritis, right knee; M25.461 Effusion, right knee; Z96.651 Presence of right artificial knee joint; M17.12 Unilateral primary osteoarthritis, left knee; M21.70 Unequal limb length (acquired), unspecified site
CPT/HCPCS: 73560; 77073

== ENCOUNTER 2022-06-13 01:41 | Outpatient (CLI) | payer BC, SELFPAY ==
[2022-06-13 15:41] LABS: Abs Immature Grans 0.03 10^3/uL (0.0-0.06); Absolute Basophil Count 0.05 10^3/uL (0.0-0.2); Absolute Eosinophil Count 0.12 10^3/uL (0.0-0.7); Absolute Lymphocyte Count 3.27 10^3/uL (1.2-3.4); Absolute Monocyte Count 0.76 10^3/uL (0.1-0.8); Absolute Neutrophil Count 4.41 10^3/uL (1.2-6.7); Basophils % 0.6; Eosinophils % 1.4; HCT 50.6 % (40.0-50.0); Immature Grans % 0.3; Lymphocytes % 37.8; MCH 30.1 pg (27.0-33.0); MCHC 33.6 % (32.0-36.0); MCV 90 fL (80-95); MPV 9.5 fL (8.0-11.0); Monocytes % 8.8; Neutrophils % 51.1; Platelet Count 321 10^3/uL (130-400); RBC 5.64 10^6/uL (4.36-5.78); RDW 14.5 % (11.8-14.1); RDW-SD 47.7 fL; WBC 8.64 10^3/uL (4.4-10.8)
[2022-06-13 16:33] LABS: AST 21 U/L (15-37); Albumin 3.8 g/dL (3.4-5.0); Alkaline Phosphatase 117 U/L (46-116); Anion Gap 6.4 mmol/L (3-11); BUN 20 mg/dL (7-18); Bilirubin, Total 0.6 mg/dL (0.2-1.0); CO2 29.6 mmol/L (21.0-32.0); CREATININE 0.9 mg/dL (0.70-1.30); Calcium 9.3 mg/dL (8.5-10.1); Chloride 103 mmol/L (98-107); Estimated GFR 95.37 (mL/min/1.73m2); Glucose 130 mg/dL (74-106); Potassium 3.8 mmol/L (3.5-5.1); Sodium 139 mmol/L (136-145); Total Protein 7.7 g/dL (6.4-8.2)
[2022-06-13 16:34] LABS: ALT 38 U/L (16-63)
== END 2022-06-13 01:42 | disposition home or self-care (01) ==
PROVIDERS: PCP Family Medicine; Visit Provider Internal Medicine
DX: Z79.899 Other long term (current) drug therapy (principal)
CPT/HCPCS: 36415; 80053; 85025

== ENCOUNTER 2023-04-15 22:55 | Outpatient (REF) | payer MEDICARE, BC, SELFPAY ==
[2023-04-14 22:07] LABS: ALT 25 U/L (16-63); AST 17 U/L (15-37); Albumin 3.9 g/dL (3.4-5.0); Alkaline Phosphatase 111 U/L (46-116); Anion Gap 8.4 mmol/L (3-11); BUN 15 mg/dL (7-18); Bilirubin, Total 0.6 mg/dL (0.2-1.0); CO2 29.6 mmol/L (21.0-32.0); Calcium 9.6 mg/dL (8.5-10.1); Calculated LDL 174 mg/dL (<100); Chloride 104 mmol/L (98-107); Cholesterol 245 mg/dL (<200); Estimated GFR 83.52 (mL/min/1.73m2); Glucose 103 mg/dL (74-106); HDL Cholesterol 45 mg/dL (40-60); Potassium 5.1 mmol/L (3.5-5.1); Sodium 142 mmol/L (136-145); Total Protein 7.3 g/dL (6.4-8.2); Triglyceride 133 mg/dL (<150)
[2023-04-14 22:08] LABS: Hemoglobin A1C 5.5 % (<5.7)
[2023-04-14 22:20] LABS: COMMENT (LAB VIEW ONLY) 47.47 mg/dL; Microalb ug/mg Crea 10.3 ug/mg Cr
== END 2023-04-15 22:56 | disposition home or self-care (01) ==
LOC: NCHCN 22:55
PROVIDERS: PCP Family Medicine; Visit Provider Nurse Practitioner Family
DX: I10 Essential (primary) hypertension (principal); E78.5 Hyperlipidemia, unspecified; R73.03 Prediabetes
CPT/HCPCS: 80053; 80061; 82043; 82570; 83036

== ENCOUNTER 2024-07-09 14:22 | Outpatient (REF) | payer MEDICARE, BC, SELFPAY ==
[2024-07-09 15:03] LABS: Bilirubin Negative (Negative); Blood Trace-intact (Negative); Clarity Clear (Clear); Glucose Negative (Negative); Ketones Negative (Negative); Leukocyte Esterase Negative (Negative); Nitrite Negative (Negative); Specific Gravity 1.015 (1.005-1.025); Urobilinogen 0.2 mg/dL (Up to 0.2)
[2024-07-09 15:08] LABS: ALT 23 U/L (16-63); AST 20 U/L (15-37); Albumin 3.5 g/dL (3.4-5.0); Alkaline Phosphatase 111 U/L (46-116); Anion Gap 7.8 mmol/L (3-11); BUN 21 mg/dL (7-18); Bilirubin, Total 0.5 mg/dL (0.2-1.0); CO2 27.2 mmol/L (21.0-32.0); CREATININE 0.9 mg/dL (0.70-1.30); Calcium 8.9 mg/dL (8.5-10.1); Calculated LDL 150 mg/dL (<100); Chloride 106 mmol/L (98-107); Cholesterol 204 mg/dL (<200); Estimated GFR 94.19 (mL/min/1.73m2); Glucose 115 mg/dL (74-106); HDL Cholesterol 45 mg/dL (>or=40); Potassium 4.6 mmol/L (3.5-5.1); Sodium 141 mmol/L (136-145); Total Protein 6.6 g/dL (6.4-8.2); Triglyceride 49 mg/dL (<150)
[2024-07-09 15:18] LABS: Bacteria Negative HPF (Negative); C & S Indicated? No; Casts Negative LPF (Negative); Crystals Negative HPF (Negative); Epithelial Cells Rare HPF (Negative); Mucus Negative (Negative); RBC 0-2 HPF (0-2); WBC Negative HPF (0-5)
[2024-07-09 15:58] LABS: COMMENT (LAB VIEW ONLY) 66.91 mg/dL; Microalb ug/mg Crea 10.3 ug/mg Cr
== END 2024-07-09 14:23 | disposition home or self-care (01) ==
LOC: NCHCN 14:22
PROVIDERS: PCP Family Medicine; Visit Provider Nurse Practitioner Family
DX: I10 Essential (primary) hypertension (principal)
CPT/HCPCS: 80053; 80061; 81003; 81015; 82043; 82570

== ENCOUNTER 2024-08-16 02:53 | Outpatient (CLI) | payer MEDICARE, BC, SELFPAY ==
--- NOTE | 2024-08-16 | DI.MRI_ITS ---
Exam(s) MR CERVICAL SPINE WO EXAM: MR CERVICAL SPINE WO CLINICAL HISTORY: Herniation of [employer] of cervical intervertebral disc, M50.20- cervical disc TECHNIQUE: Multiplanar multisequence MRI of the cervical spine was performed without intravenous contrast. COMPARISON: MR MR CERVICAL SPINE WO from 04/18/2020 FINDINGS: CERVICOMEDULLARY JUNCTION: Intact with no evidence of cerebellar tonsillar ectopia. No obvious abnormality of the odontoid process. No evidence of Chiari 1 malformation. CERVICAL SPINAL CORD: There is no abnormal signal in the cervical spinal cord and no evidence of focal cord atrophy nor focal cord swelling. OSSEOUS:There are no cervical fractures evident. No significant osseous lesions in the cervical vertebrae. INDIVIDUAL LEVELS: C2-3: No disc herniation or central canal stenosis. There is significant degenerative change in the left facet joint at this level. However, there is no obvious foraminal stenosis. Lesser amount of degenerative change evident in the right facet joint and no right-sided foraminal stenosis. C3-4: No disc herniation nor central canal stenosis.There are moderate degenerative changes in both facet joints. No Luschka joint osteophytes. Mild bilateral foraminal stenosis noted. C4-5: This level exhibits some deterioration when compared to the 2020 MRI study. Although there is preserved disc height, there is now a central-left paracentral disc protrusion which extends posteriorly 3 mm and is approximately 12 mm wide.This effaces the anterior thecal sac and contacts the anterior spinal cord. AP measurement of the canal at this level is 8 mm. There is no abnormal signal in the cervical cord at this level. There are degenerative changes in both facet joints at this level which have increased from the previous study. There are no Luschka joint osteophytes at this level. There is only minimal bilateral foraminal stenosis. C5-6: This level exhibits preserved disc height. Posteriorly there is broad annular bulging again noted, similar to previous and this effaces the anterior thecal sac. The AP measurement of the canal at this level is 9 mm. There is no abnormal signal in the cervical cord at this level. The facet joints at this level exhibit mild degenerative change. There are no Luschka joint osteophytes on the right side small Luschka joint osteophyte on the left side noted. There is moderate bilateral foraminal stenosis at this level.. C6-7: This level exhibits chronic mild disc height loss and anterior osseous lipping. Posteriorly there is broad annular bulging again noted, similar to previous with effacement of the anterior thecal sac; AP diameter of the canal being 7-8 mm. There are only minimal degenerative changes in the facet joints at this level but there are bilateral disc-Luschka joint osteophyte complexes again noted. There is moderate bilateral foraminal stenosis mostly related to the Luschka joint osteophytes C7-T1: No disc herniation nor central canal stenosis. No significant facet joint nor Luschka joint arthropathy.No foraminal stenosis. IMPRESSION: 1. Multilevel findings as described individually above at C4-5, C5-6, and C6-7 levels. 2. Findings at C5-6 and C6-7 level appear relatively stable when compared to the prior MRI scan of April 2020. 3. At C4-5 level there is and now a central-left paracentral disc herniation which was not previously present in 2020, this extending posteriorly and measuring 12 mm wide. This effaces the anterior thecal sac and slightly indents the cervical cord at this level. There is no abnormal signal in the cervical cord at this level nor elsewhere in the cervical spine and there is no cord atrophy nor focal cord swelling. There are degenerative changes in both facet joints at this level which have increased from the prior 2020 study and there is mild bilateral foraminal stenosis. There are no Luschka joint osteophytes at this level. DATA REPOSITORY:
== END 2024-08-16 03:13 ==
PROVIDERS: PCP Family Medicine; Visit Provider Nurse Practitioner Family
DX: M50.221 Other cervical disc displacement at C4-C5 level (principal); M50.123 Cervical disc disorder at C6-C7 level with radiculopathy
CPT/HCPCS: 72141

== ENCOUNTER 2024-09-02 17:06 | Emergency (ER) | payer MEDICARE, BC, SELFPAY ==
[2024-09-02 17:07] VITALS: BP 149/89; PULSE 109; RESP 18; TEMP 35.9; O2SAT 97
[2024-09-02 17:17] VITALS: BP 149/89; PULSE 109; RESP 18; TEMP 35.9; O2SAT 97
--- NOTE | 2024-09-02 17:25 | W.ED.GENAD ---
Discharge Plan Disposition Patient Disposition: Home Condition: Stable Discharge Details Clinical Impression: Dental infection Primary Care Provider: Matthew Medina ED Provider: Sam Patel Home Meds and New Rx's Prescriptions: New amoxicillin-pot clavulanate 875-125 mg tablet 1 tab PO BID 10 Days Qty: 20 0RF ketorolac 10 mg tablet 10 mg PO QID 5 Days Qty: 20 0RF Rx Instructions: maximum total duration of 5 days from all oral, intranasal, or parenteral formulations Continued methotrexate sodium 2.5 mg tablet 2.5 mg PO QWEEK cholecalciferol (vitamin D3) 25 mcg (1,000 unit) capsule 25 mcg PO DAILY ascorbate calcium (vitamin C) 500 mg tablet 500 mg PO DAILY celecoxib [Celebrex] 200 mg capsule 200 mg PO BID PRN (Reason: pain) Qty: 60 2RF Rx Instructions: Take one tablet twice daily Humira 40 mg/0.8 mL syringe kit See Rx Instructions subcut .COMPLEX Rx Instructions: inject one - 40 mg/0.8 mL syringe every 2 weeks subcut cod liver oil Oil 5 ml PO DAILY duloxetine 60 mg capsule,delayed release(DR/EC) 60 mg PO DAILY multivitamin Tablet 1 tab PO DAILY cyanocobalamin (vitamin B-12) [Vitamin B-12] 1,000 mcg Tablet 1,000 mcg PO DAILY Discharge Instructions Instructions: Ketorolac (Systemic), Amoxicillin and Clavulanate, Dental Pain ED Additional Instructions: You were seen in the emergency department for your dental fracture with early signs of infection. I have prescribed you an antibiotic called Augmentin and sent to the pharmacy [place]. I have also sent you 5 days of Toradol, please take 1000 mg of Tylenol with this 3 times per day. Please return for any reduced range of motion of jaw, vocal changes, excessive drooling, severe facial swelling with fever despite treatment, please follow-up with your dental appointment Friday. Referrals: Matthew Medina MD [Primary Care Provider, Medicine] Discharge Data Discharge Date/Time-TO BE ENTERED AT DEPARTURE: 09/02/24 17:47 HPI General Date/Time Provider Initiated Documentation: 09/02/24 17:25. HPI Narrative: 69 year-old male presents to ED today by POV/ambulating with a chief complaint of dental pain- L upper with onset for the past 3 days after breaking his tooth. Quality described as throbbing, no radiation to trismus, vocal changes, excessive drooling, neck swelling, fever, dysphagia. Severity is described as moderate. Palliating factors include nothing specific attempted. Provoking factors include hot & cold foods. Events leading up to the incident/Associated Symptoms: Patients' dentist advised ER visit for ABX. Patient not anticoagulated. Related Data Home Medications ?Medication ?Instructions ?Recorded ?Confirmed cyanocobalamin (vitamin B-12) 1,000 mcg PO DAILY 11/16/20 09/02/24 1,000 mcg tablet (Vitamin B-12) multivitamin 1 tab PO DAILY 11/16/20 09/02/24 adalimumab 40 mg/0.8 mL See Rx Instructions subcut .COMPLEX 07/10/21 09/02/24 subcutaneous syringe kit (Humira) methotrexate sodium 2.5 mg tablet 2.5 mg PO QWEEK 12/10/21 09/02/24 ascorbate calcium (vitamin C) 500 500 mg PO DAILY 01/07/22 09/02/24 mg tablet cholecalciferol (vitamin D3) 25 25 mcg PO DAILY 01/07/22 09/02/24 mcg (1,000 unit) capsule celecoxib 200 mg capsule (Celebrex) 200 mg PO BID PRN pain #60 caps 02/06/22 09/02/24 cod liver oil 5 ml PO DAILY 07/20/24 09/02/24 duloxetine 60 mg capsule,delayed 60 mg PO DAILY 07/20/24 09/02/24 release amoxicillin 875 mg-potassium 1 tab PO BID 10 days #20 tabs 09/02/24 clavulanate 125 mg tablet ketorolac 10 mg tablet 10 mg PO QID 5 days #20 tabs 09/02/24 Previous Rx's ?Medication ?Instructions ?Recorded celecoxib 200 mg capsule (Celebrex) 200 mg PO BID PRN pain #60 caps 02/06/22 amoxicillin 875 mg-potassium 1 tab PO BID 10 days #20 tabs 09/02/24 clavulanate 125 mg tablet ketorolac 10 mg tablet 10 mg PO QID 5 days #20 tabs 09/02/24 Allergies Allergy/AdvReac Type Severity Reaction Status Date / Time meloxicam AdvReac Intermediate Other (See Verified 09/02/24 17:10 Comment) prednisone AdvReac Other (See Verified 09/02/24 17:10 Comment) General Stated Complaint: DentalOral DINORA: 4 Review of Systems All systems reviewed & are unremarkable except as noted in HPI and below Exam Narrative Exam Narrative: GENERAL APPEARANCE: Well-nourished, non-toxic, awake and alert, atraumatic, no acute distress. SKIN: Warm, pink, dry, intact, without rashes/lesions/ulcerations. HEAD: Normocephalic, atraumatic, normal hair distribution for gender/age. EYES: Normal conjunctiva, no exudates on lids/lashes. ENT: Nares patent, no circumoral cyanosis, no facial swelling, cracked tooth L upper canine, no visible gingival abscess, no trismus, no excessive drooling or vocal changes, no neck swelling NECK: Supple, trachea midline, painless cervical ROM. LUNGS/CHEST: Non-labored respirations, normal A/P diameter, symmetrical expansion, no chest wall deformity HEART (CV/PV): No peripheral edema, no JVD. ABDOMEN: Soft, non-distended, no guarding. MSK: Normal ROM, no swelling/deformity to bilateral UEs or LEs, moving all extremities without weakness, no cyanosis, spine midline without tenderness, normal curvature. NEURO: Mental Status AAOx4 - alert to person, place, time, events No facial droop, no forehead involvement. Motor: No focal weakness - strength 5/5 in bilateral UEs and LEs, proximal and distal, symmetric. Sensory: sensation intact to light touch globally. Gait normal: patient ambulated without ataxia into ED room. PSYCH: euthymic, cooperative, pleasant, appropriate speech Course Vital Signs Vital signs: Vital Signs Temperature 35.9 C L 09/02/24 17:07 Pulse 109 H 09/02/24 17:07 Respiratory Rate 18 09/02/24 17:07 Blood Pressure 149/89 H 09/02/24 17:07 Pulse Oximetry 97 09/02/24 17:07 Temperature 35.9 C L 09/02/24 17:17 Temperature Source Oral 09/02/24 17:17 Pulse 109 H 09/02/24 17:17 Respiratory Rate 18 09/02/24 17:17 Blood Pressure 149/89 H 09/02/24 17:17 Blood Pressure Position Sitting 09/02/24 17:17 Pulse Oximetry 97 09/02/24 17:17 Oxygen Delivery Method Room Air 09/02/24 17:17 Oxygen Flow Rate 0 09/02/24 17:17 Pain Level 6 09/02/24 17:17 Medical Decision Making This dictation utilizes [id number] dictation software and may contain unedited grammatical errors. 69 year-old male presents to ED today by POV/ambulating with a chief complaint of dental pain- L upper with onset for the past 3 days after breaking his tooth. Quality described as throbbing, no radiation to trismus, vocal changes, excessive drooling, neck swelling, fever, dysphagia. Severity is described as moderate. Palliating factors include nothing specific attempted. Provoking factors include hot & cold foods. Events leading up to the incident/Associated Symptoms: Patients' dentist advised ER visit for ABX. Patients' medical history: Noncontributory. Family and social history: Noncontributory. Pertinent exam findings / vital signs include cracked tooth L upper canine, no visible gingival abscess, no trismus, no excessive drooling or vocal changes, no neck swelling. Differential / pathologies of concern include dental infection. Diagnostic studies of: -None. Interventions of: -Rx for Augmentin. ED Course/Assessment/Plan: 69-year-old male presents with left upper dental pain, it is throbbing, he has follow-up with his dentist, started him on Augmentin to prevent further spread of infection, counseled on therapeutic dosing of Tylenol and ibuprofen and using home remedies for dental pain as needed, strict return criteria for vocal changes or excessive drooling or reduced range of motion of jaw. Findings not consistent with gingival abscess, Waqar's angina. Disposition of dental infection. Patient verbalized understanding of the plan and return to ED criteria and engaged in shared decision making. Medical Records Medical records reviewed: Yes I reviewed the patient's medical records. PFSH All Active Problems (Updated 09/02/24 @ 17:30 by HAYDE Fuller) Dental infection (Acute) Anxiety (Chronic) Decreased hearing (Acute) Lesion of skin of nose (Acute) History of total right knee replacement (TKR) (Acute 10/30/21) Arthritis of right knee (Acute) Mass of joint of right knee (Acute) Traumatic arthritis of left knee (Acute) Paresthesia (Acute) Myalgia (Acute) BPH (benign prostatic hyperplasia) (Chronic) Essential hypertension (Acute) Prediabetes (Acute) Psoriatic arthritis (Acute) Viral syndrome (Acute) Osteoarthritis of right hip (Acute) Medical History (Updated 09/02/24 @ 17:30 by HAYDE Fuller) Pain in joint Hyperlipidemia Pain, joint, knee, right Family history of malignant neoplasm of bladder Pain of right hip joint Atopic dermatitis Overweight Herpesvirus infection Chronic instability of knee Asymptomatic microscopic hematuria Cystic disease of kidney Spinal stenosis in cervical region Ex-smoker 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 Chronic neck pain 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 No significant past medical history Surgical History (Updated 11/12/21 @ 13:14 by HAYDE Del Valle) History of left knee surgery Family History (Updated 07/20/24 @ 12:54 by Kareen De Anda) Mother Stroke Father Heart failure Social History Smoking/Tobacco Use Status: Former Tobacco Use Quit Date: 02/11/20 Tobacco: How many years used: 20 Smoking risk assessment performed?: Yes Alcohol Intake: current Alcohol Intake frequency: a few times a month Alcohol type: beer and wine Drug use: Never Substance use type: does not use Current gender identity: male Do you feel safe at home: Yes Do you feel safe in your relationship?: Yes
== END 2024-09-02 17:47 | disposition home or self-care (01) ==
PROVIDERS: Emergency Provider Physician Assistant; PCP Family Medicine
DX: K04.7 Periapical abscess without sinus (principal); I10 Essential (primary) hypertension; E78.5 Hyperlipidemia, unspecified; Z79.899 Other long term (current) drug therapy; Z87.891 Personal history of nicotine dependence
CPT/HCPCS: 99283